=== PATIENT | female | born 1930 | race Caucasian/White ===

== ENCOUNTER 2019-06-02 15:26 | Inpatient (IN) ==
--- NOTE | 2019-06-02 15:43 | DR.EXTPAIN ---
HPI Time seen Time Seen by Provider: 06/02/19 15:43 PCP Primary Care Physician: LINDA HPI Comment HPI Comment: PATIENT IS 89YR OLD FEMALE IN ER WITH LEFT HIP PAIN AFTER FALLING AT HOME. UNABLE TO BEAR WEIGHT ON LEFT HIP. DENIES CHEST PAIN OR DIZZINESS. Complaint/Symptoms Chief Complaint Doctor Comments: FELL AT HOME, LEFT HIP PAIN. Chief Complaint:: PT. TRIPPED AND FELL LANDING ON HER LEFT HIP. PT. C/O LEFT HIP PAIN. EMS STATE PT. WAS UNABLE TO BEAR WEIGHT TO EXTREMITY. Nurses notes reviewed Nurses Notes Review: Yes Source History Provided: Patient and EMS Mode of arrival Mode of Arrival: EMS Timing Onset of Chief Complaint: 06/02/19 Context History of: Arthritis Associated signs and symptoms Associated Signs and Symptoms: Pain and Swelling PMH PMH Past Medical History: Yes Past Medical History: Diabetes, Dyslipidemia and Hypertension Past Surgical History: Yes Surgical History: Other Past Surgical History Comment: CATARACTS, SKIN CANCER REMOVAL Family History History of Family Medical Conditions: Yes Family Medical History: Hypertension Social History Does patient currently use any type of tobacco product: No Have you used tobacco products in the last 12 months: No Type of Tobacco Use: None Does any household member use tobacco: No Alcohol Use: None Do you use any recreational Drugs:: No Lives With: Family Lives Where: Home infectious screening In the last 2 months have you had wt loss of >10#?: NO Have you had fever, night sweats or hemotysis?: No Have you traveled outside the country in the last 6 months?: No Isolation: Standard ROS Review of Systems Constitutional: No Symptoms Reported and See HPI; negative Fever, Weakness and Fatigue Eyes: No Symptoms Reported and See HPI ENTM: No Symptoms Reported and See HPI; negative Nose Discharge and Nose Congestion Respiratoy: No Symptoms Reported and See HPI; negative Moist Cough, Short of Breath and Wheezing Cardiovascular: No Symptoms Reported and See HPI; negative Chest Pain Gastrointestinal/Abdominal: No Symptoms Reported and See HPI Genitourinary: No Symptoms Reported Neurological: No Symptoms Reported Musculoskeletal: No Symptoms Reported Integumentary: No Symptoms Reported Hematologic/Lymphatic: No Symptoms Reported Endocrine: No Symptoms Reported Psychiatric: No Symptoms Reported and See HPI All Other Systems: Reviewed and Negative PE Vital Signs Vitals: Temperature 98.2 F Pulse Rate [Right Brachial] 81 Pulse Rate 86 Respiratory Rate 17 Blood Pressure [Right Arm] 201/87 Blood Pressure 193/86 O2 Sat by Pulse Oximetry 97 General Limitations: No Limitations General Appearance: Alert and In No Apparent Distress Head Head Exam: Normal Inspection Eyes Eye exam: Normal Appearance; negative Scleral Icterus and Conjunctival Injection ENT ENT Exam: Normal Exam, Normal Oropharynx, Normal External Ear Exam and TM's Normal Bilaterally Neck Neck Exam: Normal Inspection and Trachea Midline; negative Tenderness and Lymphadenopathy Chest Chest Inspection: Normal Inspection and Symmetric Chest Wall Rise; negative Tenderness Respiratory Respiratory Exam: Normal Lung Sounds Bilat; negative Accessory Muscle Use, Chest Wall Tenderness and Respiratory Distress Respiratory Exam: Bilateral: Rhonchi and Lower: Rhonchi Cardiovascular Cardiovascular Exam: Regular Rate, Normal Rhythm and Normal Heart Sounds Abdominal Exam Abdominal Exam: Normal Inspection, Normal Bowel Sounds and Soft; negative Tenderness Extremities Extremities Exam: Tenderness, Normal Capillary Refill and Joint Swelling (LEFT HIP SWOLLEN AND TENDERNESS.); negative Full ROM and Calf Tenderness Back Back Exam: Normal Inspection Neurological Neurological Exam: Alert, Oriented X3 and CN II-XII Intact Psychiatric Psychiatric Exam: Normal Affect and Normal Mood Skin Skin Exam: Erythema and Other (BRUISING LEFT HIP.) MDM Differential Diagnosis Differential Diagnosis: Contusion (LT HIP), Fracture (LEFT HIP) and Sprain (LEFT HIP) COURSE Treatment Treatment: SEE ORDERS. MORPHIN 4MG IV AND ZOFRAN 4MG IV. REPEAT MORPHIN 4MG IV. Reevaluation 1st: Improved (STILL HAVING PAIN.) Consultation Consultation Comments: DISCUSSED PATIENT WITH DR. BRENNAN AND WILL ADMIT PATIENT. HARPAL PETER WAS CONSULTED. Education/Counseling Education/Counseling: Patient and Education Educated On: Diagnosis and Needs for Follow Up ROR Labs Reviewed Laboratory Results Reviewed?: Yes Result Diagrams: 06/04/19 05:21 06/04/19 05:21 Laboratory: 06/02/19 17:23 Urine,Catheterized Urine Culture - Final Methicillin Resis Staph Aureus WBC 8.3 X10^3/uL (3.6-10.0) 06/02/19 16:49 RBC 4.10 X10^6/uL (3.5-5.4) 06/02/19 16:49 Hgb 12.6 g/dL (12.0-16.0) 06/02/19 16:49 Hct 37.7 % (36.0-47.0) 06/02/19 16:49 MCV 91.9 fL (80.0-100.0) 06/02/19 16:49 MCH 30.7 pg (27.0-34.0) 06/02/19 16:49 MCHC 33.4 g/dL (33.0-35.0) 06/02/19 16:49 RDW 14.4 % (11.6-16.5) 06/02/19 16:49 Plt Count 301 X10^3/uL (150.0-450.0) 06/02/19 16:49 MPV 7.3 fL (7.4-11.0) L 06/02/19 16:49 Neut % (Auto) 68.1 % (42.0-75.0) 06/02/19 16:49 Lymph % (Auto) 21.0 % (21.0-51.0) 06/02/19 16:49 [place] % (Auto) 8.6 % (0.0-13.0) 06/02/19 16:49 Eos % (Auto) 1.4 % (0.9-2.9) 06/02/19 16:49 Baso % (Auto) 0.9 % (0.2-1.0) 06/02/19 16:49 Neut # (Auto) 5.6 x10^3/uL (2.2-4.8) H 06/02/19 16:49 Lymph # (Auto) 1.7 X10^3/uL (1.3-2.9) 06/02/19 16:49 [place] # (Auto) 0.7 x10^3/uL (0.3-0.8) 06/02/19 16:49 Eos # (Auto) 0.1 x10^3/uL (0.0-0.2) 06/02/19 16:49 Baso # (Auto) 0.1 X10^3/uL (0.0-0.1) 06/02/19 16:49 Absolute Nucleated RBC 0.0 /100WBC 06/02/19 16:49 Sodium 135 mmol/L (136-145) L 06/02/19 16:49 Corrected Sodium 142 mmol/L (136-145) 06/02/19 16:49 Potassium 4.3 mmol/L (3.5-5.1) 06/02/19 16:49 Chloride 99 mmol/L (98-107) 06/02/19 16:49 Carbon Dioxide 31.1 mmol/L (21-32) 06/02/19 16:49 BUN 25 mg/dL (7-18) H 06/02/19 16:49 Creatinine 1.16 mg/dL (0.55-1.02) H 06/02/19 16:49 Est GFR (MDRD) Af Amer 57 (>60) L 06/02/19 16:49 Est GFR (MDRD) Non-Af 47 (>60) L 06/02/19 16:49 Glucose 390 mg/dL (65-99) H 06/02/19 16:49 Calcium 9.1 mg/dL (8.5-10.1) 06/02/19 16:49 Corrected Calcium TNP 06/02/19 16:49 Total Bilirubin 0.20 mg/dL (0.2-1.0) 06/02/19 16:49 AST 12 Units/L (15-37) L 06/02/19 16:49 ALT 21 Units/L (12-78) 06/02/19 16:49 Alkaline Phosphatase 63 Units/L (46-116) 06/02/19 16:49 Total Protein 8.0 g/dL (6.4-8.2) 06/02/19 16:49 Albumin 3.5 g/dL (3.4-5.0) 06/02/19 16:49 Globulin 4.5 g/dL (2.5-4.5) 06/02/19 16:49 Albumin/Globulin Ratio 0.8 Ratio (1.1-2.1) L 06/02/19 16:49 Specimen Type Catherized urine 06/02/19 17:23 Urine Color Yellow (YELLOW) 06/02/19 17:23 Urine Appearance Hazy (CLEAR) 06/02/19 17:23 Urine pH 7.0 (5.0 - 8.0) 06/02/19 17:23 Ur Specific [place] 1.010 (1.000-1.030) 06/02/19 17:23 Urine Protein 2+ (NEGATIVE) 06/02/19 17:23 Urine Glucose (UA) 4+ (NEGATIVE) 06/02/19 17:23 Urine Ketones Negative (NEGATIVE) 06/02/19 17:23 Urine Occult Blood 1+ (NEGATIVE) 06/02/19 17:23 Urine Nitrite Negative (NEGATIVE) 06/02/19 17:23 Urine Bilirubin Negative (NEGATIVE) 06/02/19 17:23 Urine Urobilinogen Normal (NORMAL) 06/02/19 17:23 Ur Leukocyte Esterase 3+ (NEGATIVE) 06/02/19 17:23 Urine RBC 0-2 /HPF (0-3) 06/02/19 17:23 Urine WBC 10-20 /HPF (0-5) A 06/02/19 17:23 Ur Squamous Epith Cells Rare /HPF (NEGATIVE) 06/02/19 17:23 Urine Bacteria 3+ /HPF (NEGATIVE) 06/02/19 17:23 Ur Culture Indicated? Yes/culture set up 06/02/19 17:23 XRAY XRAY Interpreted by: Radiologist and Self XRAY Findings: REPORTS NOTED AND DISCUSSED WITH PATIENT. Opioid Opioid Risk Tool Age (Adolfo box if 16-45): No History of Preadolescent Sexual Abuse: No Total: 0 Total Score Risk Category: Low Risk Copyright: Manan MACHUCA predicting aberrant behaviors Diagnosis Discharge Problem: Hip fracture, left Qualifiers: Encounter type: initial encounter Fracture type: closed Qualified Code(s): S72.002A - Fracture of unspecified part of neck of left femur, initial encounter for closed fracture Instructions Forms: Excuse From Work Patient Portal
[2019-06-02] MEDS ORDERED: ZOFRAN INJ 4 MG VIAL IVP ONE (15:59)
[2019-06-02] MEDS ORDERED: MORPHINE SULFATE INJ 4 MG IVP ONE ×2 (15:59→17:43)
[2019-06-02] MEDS ORDERED: ZOFRAN INJ 4 MG VIAL ONE (16:00)
[2019-06-02] MEDS ORDERED: MORPHINE SULFATE INJ 4 MG ONE ×2 (16:00→17:43)
[2019-06-02 17:01] LABS: BASOPHILS # (AUTO) 0.1 X10^3/uL (0.0-0.1); BASOPHILS % (AUTO) 0.9 % (0.2-1.0); EOSINOPHILS # (AUTO) 0.1 x10^3/uL (0.0-0.2); EOSINOPHILS % (AUTO) 1.4 % (0.9-2.9); HEMATOCRIT 37.7 % (36.0-47.0); HEMOGLOBIN 12.6 g/dL (12.0-16.0); LYMPHOCYTES # (AUTO) 1.7 X10^3/uL (1.3-2.9); MEAN CORPUSCULAR HEMOGLOBIN 30.7 pg (27.0-34.0); MEAN CORPUSCULAR HGB CONC 33.4 g/dL (33.0-35.0); MEAN CORPUSCULAR VOLUME 91.9 fL (80.0-100.0); MEAN PLATELET VOLUME 7.3 fL (7.4-11.0); MONOCYTES # (AUTO) 0.7 x10^3/uL (0.3-0.8); MONOCYTES % (AUTO) 8.6 % (0.0-13.0); NEUTROPHILS # (AUTO) 5.6 x10^3/uL (2.2-4.8); NEUTROPHILS % (AUTO) 68.1 % (42.0-75.0); PLATELET COUNT 301 X10^3/uL (150.0-450.0); RED CELL DISTRIBUTION WIDTH 14.4 % (11.6-16.5); WHITE BLOOD COUNT 8.3 X10^3/uL (3.6-10.0)
[2019-06-02 17:09] LABS: ALANINE AMINOTRANSFERASE 21 Units/L (12-78); ALBUMIN 3.5 g/dL (3.4-5.0); ALKALINE PHOSPHATASE 63 Units/L (46-116); ASPARTATE AMINO TRANSFERASE 12 Units/L (15-37); BLOOD UREA NITROGEN 25 mg/dL (7-18); CALCIUM 9.1 mg/dL (8.5-10.1); CARBON DIOXIDE 31.1 mmol/L (21-32); CHLORIDE 99 mmol/L (98-107); COR NA(FOR HYPERGLY) 142 mmol/L (136-145); CREATININE 1.16 mg/dL (0.55-1.02); SODIUM 135 mmol/L (136-145); eGFR NON BLACK RACES 47 (>60)
[2019-06-02 17:40] LABS: BILIRUBIN,URINE NEGATIVE (NEGATIVE); BLOOD/HEMOGLOBIN,URINE 1+ (NEGATIVE); GLUCOSE, URINE 4+ (NEGATIVE); KETONES,URINE NEGATIVE (NEGATIVE); LEUKOCYTE ESTERASE ,URINE 3+ (NEGATIVE); NITRITES,URINE NEGATIVE (NEGATIVE); PROTEIN,URINE 2+ (NEGATIVE); UROBILINOGEN,URINE NORMAL (NORMAL)
[2019-06-02 17:47] LABS: APPEARANCE,URINE HAZY (CLEAR); COLOR,URINE YELLOW (YELLOW)
[2019-06-02 17:48] LABS: BACTERIA,URINE 3+ /HPF (NEGATIVE); RBC,URINE 0-2 /HPF (0-3); SQUAMOUS EPITHELIAL CELL,UR RARE /HPF (NEGATIVE)
--- NOTE | 2019-06-02 17:48 | RAD ---
HISTORYPRE OP HIP SXSTUDYCHEST, 1 VIEWCOMPARISONNoneFINDINGSThe trachea is midline. Mild cardiomegaly. Thoracic aorta calcifications. Chronic appearing coarsened interstitial markings. No focal consolidation. The bony thorax is intact.IMPRESSIONNo acute cardiopulmonary disease.Electronically signed by: KIMBERLY GARNICA (Jun 02, 2019 17:48:40)
--- NOTE | 2019-06-02 17:56 | RAD ---
HISTORYTrauma, pain PT. TRIPPED AND FELL LANDING ON HER LEFT HIP. PT. C/O LEFT HIP PAIN. EMS STATE PT. WAS UNABLE TO BEAR WEIGHT TO EXTREMITY. HTN, DM, skin CA removalSTUDYHIP, LEFTCOMPARISONJuly 2018FINDINGSA single frontal view of the pelvis demonstrates the pelvic ring to be intact. There is an acute, displaced, and impacted subcapital femoral neck fracture on the left. No dislocation. Mild right hip osteoarthritis.IMPRESSIONAcute left subcapital femoral neck fractureElectronically signed by: KIMBERLY GARNICA (Jun 02, 2019 17:56:00)
[2019-06-02] MEDS ORDERED: MORPHINE SULFATE PCA 30 MG IVP PRN (18:11)
[2019-06-02] MEDS ORDERED: NARCAN INJ IVP PRN (18:11)
[2019-06-02] MEDS ORDERED: NS 1000 ML 1,000 ML ONE (18:53)
[2019-06-02] MEDS: NS 1000 ML 1,000 ML IV SCH (19:07)
[2019-06-02] MEDS: HumuLIN R SUBCUT PRN (21:45)
[2019-06-02 22:02] VITALS: BMI 25.0
[2019-06-03 06:40] LABS: BASOPHILS # (AUTO) 0.1 X10^3/uL (0.0-0.1); BASOPHILS % (AUTO) 0.7 % (0.2-1.0); EOSINOPHILS # (AUTO) 0.1 x10^3/uL (0.0-0.2); EOSINOPHILS % (AUTO) 0.8 % (0.9-2.9); HEMATOCRIT 35.7 % (36.0-47.0); LYMPHOCYTES # (AUTO) 1.7 X10^3/uL (1.3-2.9); LYMPHOCYTES % (AUTO) 19.7 % (21.0-51.0); MEAN CORPUSCULAR HEMOGLOBIN 31.2 pg (27.0-34.0); MEAN CORPUSCULAR HGB CONC 33.7 g/dL (33.0-35.0); MEAN CORPUSCULAR VOLUME 92.5 fL (80.0-100.0); MEAN PLATELET VOLUME 7.1 fL (7.4-11.0); NEUTROPHILS # (AUTO) 5.8 x10^3/uL (2.2-4.8); NEUTROPHILS % (AUTO) 66.8 % (42.0-75.0); PLATELET COUNT 283 X10^3/uL (150.0-450.0); RED BLOOD COUNT 3.86 X10^6/uL (3.5-5.4); RED CELL DISTRIBUTION WIDTH 14.3 % (11.6-16.5); WHITE BLOOD COUNT 8.6 X10^3/uL (3.6-10.0)
[2019-06-03 06:54] LABS: ALANINE AMINOTRANSFERASE 19 Units/L (12-78); ALKALINE PHOSPHATASE 54 Units/L (46-116); ASPARTATE AMINO TRANSFERASE 15 Units/L (15-37); BLOOD UREA NITROGEN 25 mg/dL (7-18); CALCIUM 8.5 mg/dL (8.5-10.1); CARBON DIOXIDE 29.5 mmol/L (21-32); CHLORIDE 101 mmol/L (98-107); COR CA(FOR HYPOALB) 9.3 mg/dL (8.5-10.1); COR NA(FOR HYPERGLY) 137 mmol/L (136-145); CREATININE 1.05 mg/dL (0.55-1.02); SODIUM 135 mmol/L (136-145); TOTAL PROTEIN 7.2 g/dL (6.4-8.2); eGFR NON BLACK RACES 53 (>60)
[2019-06-03] MEDS ORDERED: NEO-SYNEPHRINE INJ ONE (08:30)
[2019-06-03] MEDS ORDERED: EPHEDRINE SULFATE INJ ONE (08:30)
[2019-06-03] MEDS ORDERED: VERSED ONE (08:30)
[2019-06-03] MEDS ORDERED: KETALAR ONE (09:04)
[2019-06-03] MEDS: ROCEPHIN VIAL 1 GRAM 1 G in NS 100 ML IV + SPIKE MINIBAG* 100 ML IV SCH (09:29)
--- NOTE | 2019-06-03 09:37 | DR.H&P ---
H&P - History & Physical for Day of: H&P Date: 06/03/19 - Chief Complaint Chief Complaint: LEFT HIP PAIN - History of Present Illness History of Present Illness: IS A 89 YEAR OLD PATIENT OF OURS WHO PRESENTED TO THE ER WITH COMPLAINTS OF LEFT HIP PAIN AFTER FALLING AT HOME. SHE WAS UNABLE TO BEAR WEIGHT TO THE LEFT EXTREMITY. PATIENT LIVES AT HOME WITH HER HANDICAPPED SON. ON ARRIVAL TO THE ER, VITALS ERE 98.2-86-17-93%-193/86. LABS WERE OBTAINED. ABNORMAL LAB VALUES INCLUDE THE FOLLOWING: SODIUM 135, BUN 25, CREATININE 1.16, GLUCOSE 390, AST 12. URINALYSIS REVEALED: WBC 10-20, RBC -2, LEUKOCYTES 3+, BACTERIA 2+. URINE CULTURE WAS SET UP. LEFT HIP XRAY REVEALED: ACUTE LEFT SUBCAPITAL FEMORAL NECK FRACTURE. CHEST XRAY REVEALED: NO ACUTE CARDIOPULMONARY DISEASE. EKG REVEALED: SINUS RHYTHM WITH HR 86. WAS CONSULTED. HE VISITED WITH PATIENT THIS MORNING AND PLANNED FOR HIP REPLACEMENT THIS AFTERNOON. WE DISCUSSED PLAN OF CARE WITH PATIENT AND SHE IS IN AGREEMENT. TIME SPENT WITH PATIENT AND CONSULTING PHYSICIAN WAS GREATER THAN 16 MINUTES. AN ECHO WAS OBTAINED FOR SURGICAL CLEARANCE. SHE IS MEDICALLY STABLE AND CLEAR FOR SURGERY. SHE WAS STARTED ON NORMAL SALINE AT KVO, MORPHINE HEAD AND NECK SURGEON, HUMULIN R SLIDING SCALE, AND ROCEPHIN 1G IV DAILY FOR UTI. OTHERWISE, WE WILL FOLLOW UP WITH AM LABS AND CONTINUE TO MONITOR. - Past Medical History Past Medical History: Hypertension, Dyslipidemia, Diabetes - Past Surgical History Surgical History: Other - Family History Family Medical History: Hypertension - Social History Does patient currently use any type of tobacco product: No Have you used tobacco products in the last 12 months: No Type of Tobacco Use: None Does any household member use tobacco: No Alcohol Use: None Drug Use: None - Medications Home Medications: iodine Allergy (Verified 06/02/19 15:34) - Review of Systems Constitutional: Weakness Eyes: No Symptoms Reported ENT: No Symptoms Reported Respiratory: No Symptoms Reported Cardiovascular: No Symptoms Reported Gastrointestinal: No Symptoms Reported Genitourinary: No Symptoms Reported Musculoskeletal: See HPI, Other (LEFT HIP PAIN ) Skin: No Symptoms Reported Neurological: Weakness - Physical Exam Vital Signs: Temperature 98.8 F Pulse Rate [Right Brachial] 86 Pulse Rate 86 Respiratory Rate 18 Blood Pressure [Right Arm] 107/53 Blood Pressure 193/86 O2 Sat by Pulse Oximetry 93 Oriented: Normal Eyes: Normal Ear: Normal Nose: Normal Throat: Normal Respiratory: Diminished Throughout Cardiovascular: Normal : Normal Auscultation: Bowel Sounds: Normal Palpation: Normal Tenderness: Normal Skin: Normal Musculoskeletal: Left, Hip, Swelling, Deformity Psychiatric: Normal Mood Description: Calm Affect: Normal Speech Pattern: Clear - Assessment/Plan (1) Hip fracture, left Qualifiers: Encounter type: initial encounter Fracture type: closed Qualified Code(s): S72.002A - Fracture of unspecified part of neck of left femur, initial encounter for closed fracture Status: Acute Plan: SURGICAL CONSULT, MORPHINE HEAD AND NECK SURGEON, CONTINUE TO MONITOR (2) Acute hip pain Qualifiers: Laterality: left Qualified Code(s): M25.552 - Pain in left hip Status: Acute (3) Hypertension Qualifiers: Hypertension type: essential hypertension Qualified Code(s): I10 - Essential (primary) hypertension Status: Acute (4) Urinary tract infection Qualifiers: Urinary tract infection type: site unspecified Hematuria presence: without hematuria Qualified Code(s): N39.0 - Urinary tract infection, site not specified Status: Acute Plan: ROCPEHIN 1G IV DAILY, CONTINUE TO MONITOR - Allergies Allergies/Adverse Reactions: Allergies Allergy/AdvReac Type Severity Reaction Status Date / Time iodine Allergy Verified 06/02/19 15:34
[2019-06-03] MEDS ORDERED: BACTROBAN TOPICAL OINT ONE (11:13)
[2019-06-03] MEDS ORDERED: MARCAINE 0.25% WITH EPI IJ ONE (11:13)
--- NOTE | 2019-06-03 11:58 | VAS ---
HISTORYORTHO CLEARANCE, dizzinessSTUDYCarotid Doppler ultrasoundCOMPARISONNo priorsTECHNIQUEMultiple hoang scale and color flow Doppler images of the right and left carotid arterial system were obtained. The vertebral arterial system was evaluated as well.FINDINGSNormal color flow Doppler is seen throughout the right and left carotid arterial system. Peak systolic arterial velocity in right ICA 72.5 centimeters/second with an ICA/CCA ratio 0.75. Peak systolic arterial velocity in the left ICA is 75.9 centimeters/second with an ICA/CCA ratio 0.7. no hemodynamically significant stenosis is seen based on velocity criteria. The right and left vertebral arteries demonstrate antegrade flow.IMPRESSIONNo hemodynamically significant stenosisElectronically signed by: ESTELA MENDOZA (Jun 03, 2019 11:56:33)
[2019-06-03] MEDS ORDERED: FENTANYL INJ 100 mcg ONE (12:08)
[2019-06-03] MEDS ORDERED: ANCEF 1 GRAM IV PREMIX* 1 G/50 ML BAG IV ONE (12:59)
[2019-06-03] MEDS ORDERED: LR 1000 ML IV 1,000 ML IV ONE (13:32)
[2019-06-03] MEDS ORDERED: MORPHINE SULFATE INJ 2 MG INJ ONE (17:17)
[2019-06-03] MEDS ORDERED: MORPHINE SULFATE INJ 2 MG INJ IVP PRN (17:37)
[2019-06-03] MEDS ORDERED: NORCO 5/325 MG TAB PO PRN (17:40)
[2019-06-03] MEDS: HumuLIN R SUBCUT PRN ×2 (17:41→22:15)
--- NOTE | 2019-06-03 18:11 | RAD ---
HISTORYPOST OP LEFT HIP REPLACEMENT HTN, DM, CATARACTS, ORTHOSTUDYPELVISCOMPARISONNoneFINDINGSThere is a metallic prosthesis in the left hip with the acetabu lar and femoral portions of the prosthesis in good position. There is mild joint space narrowing in t he right hip. No fracture or dislocation is seen. There are skin clips superior laterally on the left . There is mild subcutaneous swelling and air scattered around the left hip. The pelvis is intact.IMP RESSIONStatus post total left hip replacement with postop changes as above.Electronically signed by: ALEX HULL (Jun 03, 2019 18:10:30)
[2019-06-03] MEDS: SNACK - Diabetic Appropriate PO SCH (20:00)
[2019-06-03] MEDS: NS 1000 ML 1,000 ML IV SCH (20:44)
[2019-06-04 06:26] LABS: BASOPHILS % (AUTO) 0.3 % (0.2-1.0); EOSINOPHILS % (AUTO) 0.3 % (0.9-2.9); HEMATOCRIT 31.5 % (36.0-47.0); HEMOGLOBIN 10.7 g/dL (12.0-16.0); LYMPHOCYTES # (AUTO) 1.1 X10^3/uL (1.3-2.9); LYMPHOCYTES % (AUTO) 9.2 % (21.0-51.0); MEAN CORPUSCULAR HEMOGLOBIN 31.1 pg (27.0-34.0); MEAN CORPUSCULAR HGB CONC 33.8 g/dL (33.0-35.0); MEAN PLATELET VOLUME 7.4 fL (7.4-11.0); MONOCYTES # (AUTO) 1.5 x10^3/uL (0.3-0.8); MONOCYTES % (AUTO) 12.3 % (0.0-13.0); NEUTROPHILS # (AUTO) 9.5 x10^3/uL (2.2-4.8); NEUTROPHILS % (AUTO) 77.9 % (42.0-75.0); PLATELET COUNT 246 X10^3/uL (150.0-450.0); RED BLOOD COUNT 3.43 X10^6/uL (3.5-5.4); RED CELL DISTRIBUTION WIDTH 14.1 % (11.6-16.5); WHITE BLOOD COUNT 12.3 X10^3/uL (3.6-10.0)
[2019-06-04 06:49] LABS: ALANINE AMINOTRANSFERASE 16 Units/L (12-78); ALBUMIN 2.5 g/dL (3.4-5.0); ALKALINE PHOSPHATASE 56 Units/L (46-116); ASPARTATE AMINO TRANSFERASE 18 Units/L (15-37); BLOOD UREA NITROGEN 16 mg/dL (7-18); CARBON DIOXIDE 25.4 mmol/L (21-32); CHLORIDE 103 mmol/L (98-107); COR CA(FOR HYPOALB) 9.2 mg/dL (8.5-10.1); COR NA(FOR HYPERGLY) 138 mmol/L (136-145); CREATININE 0.79 mg/dL (0.55-1.02); SODIUM 137 mmol/L (136-145); TOTAL PROTEIN 6.5 g/dL (6.4-8.2); eGFR NON BLACK RACES > 60 (>60)
[2019-06-04] MEDS: NS 1000 ML 1,000 ML IV SCH ×2 (08:39→20:36)
[2019-06-04] MEDS: ROCEPHIN VIAL 1 GRAM 1 G in NS 100 ML IV + SPIKE MINIBAG* 100 ML IV SCH (08:40)
[2019-06-04] MEDS: LOVENOX INJ 40 MG SYR SC SCH (08:42)
[2019-06-04] MEDS ORDERED: ULTRAM PO PRN (10:52)
[2019-06-04] MEDS: JANUVIA PO SCH (12:00)
[2019-06-04] MEDS: GLUCOTROL PO SCH ×2 (12:00→20:35)
[2019-06-04] MEDS: LEVAQUIN PREMIX IV 500 MG 500 MG/100 ML BAG IV SCH (14:15)
[2019-06-04] MEDS: NEURONTIN CAP 300 MG PO SCH ×2 (14:30→21:56)
[2019-06-04] MEDS: HumuLIN R SUBCUT PRN ×2 (17:00→21:56)
[2019-06-04] MEDS ORDERED: SNACK - Diabetic Appropriate PO SCH (20:00)
--- NOTE | 2019-06-04 21:16 | PCM.PROG ---
Progress Note - Progress Note for Day of Date of Exam: 06/04/19 - Subjective Subjective: IS DAY 1 STATUS POST SURGICAL REPAIR DUE TO A LEFT SIDED DISPLACED FEMORAL NECK FRACTURE. TODAY, SHE IS ALERT AND ORIENTED, LYING IN BED ON MORNING ROUNDS. SHE REPORTS RIGHT HIP PAIN THIS MORNING. ON EXAMINATION, HEART IS REGULAR IN RATE AND RHYTHM. BILATERAL LUNGS ARE NOTED WITH DIMINISHED LUNG SOUNDS THROUGHOUT. ABDOMEN IS ROUND, SOFT, AND NOTED WITH SUPRAPUBIC TENDERNESS. LEFT HIP IS NOTED WITH A SURGICAL DRESSING. ABDUCTION PILLOW IN PLACE. HER VITALS THIS MORNING ARE: 98.0-105-20-96%-159/70. LABS WERE OBTAINED. ABNORMAL LAB VALUES INCLUDE THE FOLLOWING: WBC 12.3, RBC 3.43, HGB 10.7, HCT 31.5, GLUCOSE 162, CALCIUM 162, CALCIUM 8.0, ALBUMIN 2.5. URINE CULTURE REVEALED GROWTH OF MRSA. SHE IS CURRENTLY RECEIVING NORMAL SALINE AT KVO, LEVAQUIN 500MG IV DAILY, MORPHINE -4MG IV Q4H PRN, HUMULIN R SLIDING SCALE, AND LOVENOX 40MG SC DAILY. WE WILL RESUME HER HOME MEDICATIONS TODAY. PHYSICAL THERAPY WILL WORK WITH PATIENT TODAY. OTHERWISE, WE WILL FOLLOW UP WITH AM LABS AND CONTINUE TO MONITOR. - Past Medical Family Social History Past Med/Fam/Surg Hx: No changes since H&P Allergies: Allergies iodine Allergy (Verified 06/02/19 15:34) - Review of Systems ROS: No change since H&P - Vital Signs and I&O's Vital Signs: Temperature 98.4 F Pulse Rate [Right Brachial] 102 Pulse Rate 107 Respiratory Rate 20 Blood Pressure [Right Arm] 150/66 Blood Pressure 177/59 O2 Sat by Pulse Oximetry 97 Intake and Output: Intake & Output 06/02/19 06/03/19 06/04/19 06/05/19 11:59 11:59 11:59 11:59 Intake Total 950 / 950 1630 / 1630 880 / 880 Output Total 2550 / 2550 1999 Balance -1600 / -1600 -370 / -370 880 / 880 - Physical Exam Oriented: Normal Eyes: Normal Ear: Normal Nose: Normal Throat: Normal Respiratory: Generalized, Diminished Cardiovascular: Normal : Normal Auscultation: Bowel Sounds: Normal Palpation: Normal Tenderness: Normal Skin: Wound Musculoskeletal: Left, Hip, Swelling, Deformity Psychiatric: Normal Mood Description: Calm Affect: Normal Speech Pattern: Clear, Appropriate - Laboratory and Diagnostics Result Diagrams: 06/04/19 05:21 06/04/19 05:21 Labs: 06/02/19 17:23 Urine,Catheterized Urine Culture - Final Methicillin Resis Staph Aureus Laboratory WBC 12.3 X10^3/uL (3.6-10.0) H 06/04/19 05:21 RBC 3.43 X10^6/uL (3.5-5.4) L 06/04/19 05:21 Hgb 10.7 g/dL (12.0-16.0) L 06/04/19 05:21 Hct 31.5 % (36.0-47.0) L 06/04/19 05:21 MCV 92.0 fL (80.0-100.0) 06/04/19 05:21 MCH 31.1 pg (27.0-34.0) 06/04/19 05:21 MCHC 33.8 g/dL (33.0-35.0) 06/04/19 05:21 RDW 14.1 % (11.6-16.5) 06/04/19 05:21 Plt Count 246 X10^3/uL (150.0-450.0) 06/04/19 05:21 MPV 7.4 fL (7.4-11.0) 06/04/19 05:21 Neut % (Auto) 77.9 % (42.0-75.0) H 06/04/19 05:21 Lymph % (Auto) 9.2 % (21.0-51.0) L 06/04/19 05:21 [place] % (Auto) 12.3 % (0.0-13.0) 06/04/19 05:21 Eos % (Auto) 0.3 % (0.9-2.9) L 06/04/19 05:21 Baso % (Auto) 0.3 % (0.2-1.0) 06/04/19 05:21 Neut # (Auto) 9.5 x10^3/uL (2.2-4.8) H 06/04/19 05:21 Lymph # (Auto) 1.1 X10^3/uL (1.3-2.9) L 06/04/19 05:21 [place] # (Auto) 1.5 x10^3/uL (0.3-0.8) H 06/04/19 05:21 Eos # (Auto) 0.0 x10^3/uL (0.0-0.2) 06/04/19 05:21 Baso # (Auto) 0.0 X10^3/uL (0.0-0.1) 06/04/19 05:21 Absolute Nucleated RBC 0.0 /100WBC 06/04/19 05:21 PT 13.3 SECONDS (11.8-14.3) 06/03/19 06:19 INR Target Range - 06/03/19 06:19 INR 1.05 (0.8-1.3) 06/03/19 06:19 APTT 26.5 SECONDS (22.9-36.5) 06/03/19 06:19 PTT Comment - 06/03/19 06:19 Sodium 137 mmol/L (136-145) 06/04/19 05:21 Corrected Sodium 138 mmol/L (136-145) 06/04/19 05:21 Potassium 3.5 mmol/L (3.5-5.1) 06/04/19 05:21 Chloride 103 mmol/L (98-107) 06/04/19 05:21 Carbon Dioxide 25.4 mmol/L (21-32) 06/04/19 05:21 BUN 16 mg/dL (7-18) 06/04/19 05:21 Creatinine 0.79 mg/dL (0.55-1.02) 06/04/19 05:21 Est GFR (MDRD) Af Amer > 60 (>60) 06/04/19 05:21 Est GFR (MDRD) Non-Af > 60 (>60) 06/04/19 05:21 Glucose 162 mg/dL (65-99) H 06/04/19 05:21 POC Glucose (mg/dL) 254 mg/dL (65-99) H 06/04/19 20:02 Calcium 8.0 mg/dL (8.5-10.1) L 06/04/19 05:21 Corrected Calcium 9.2 mg/dL (8.5-10.1) 06/04/19 05:21 Total Bilirubin 0.30 mg/dL (0.2-1.0) 06/04/19 05:21 AST 18 Units/L (15-37) 06/04/19 05:21 ALT 16 Units/L (12-78) 06/04/19 05:21 Alkaline Phosphatase 56 Units/L (46-116) 06/04/19 05:21 Total Protein 6.5 g/dL (6.4-8.2) 06/04/19 05:21 Albumin 2.5 g/dL (3.4-5.0) L 06/04/19 05:21 Globulin 4.0 g/dL (2.5-4.5) 06/04/19 05:21 Albumin/Globulin Ratio 0.6 Ratio (1.1-2.1) L 06/04/19 05:21 Specimen Type Catherized urine 06/02/19 17:23 Urine Color Yellow (YELLOW) 06/02/19 17:23 Urine Appearance Hazy (CLEAR) 06/02/19 17:23 Urine pH 7.0 (5.0 - 8.0) 06/02/19 17:23 Ur Specific [place] 1.010 (1.000-1.030) 06/02/19 17:23 Urine Protein 2+ (NEGATIVE) 06/02/19 17:23 Urine Glucose (UA) 4+ (NEGATIVE) 06/02/19 17: Urine Ketones Negative (NEGATIVE) 06/02/19 17:23 Urine Occult Blood 1+ (NEGATIVE) 06/02/19 17:23 Urine Nitrite Negative (NEGATIVE) 06/02/19 17: Urine Bilirubin Negative (NEGATIVE) 06/02/19 17:23 Urine Urobilinogen Normal (NORMAL) 06/02/19 17:23 Ur Leukocyte Esterase 3+ (NEGATIVE) 06/02/19 17:23 Urine RBC 0-2 /HPF (0-3) 06/02/19 17:23 Urine WBC 10-20 /HPF (0-5) A 06/02/19 17:23 Ur Squamous Epith Cells Rare /HPF (NEGATIVE) 06/02/19 17:23 Urine Bacteria 3+ /HPF (NEGATIVE) 06/02/19 17:23 Ur Culture Indicated? Yes/culture set up 06/02/19 17:23 Tissue Pathology To follow 06/03/19 14:04 Blood Type A POSITIVE 02/09/20 18:29 Antibody Screen Negative 06/02/19 18:29 - Plan (1) Hip fracture, left Status: Acute Qualifiers: Encounter type: initial encounter Fracture type: closed Qualified Code(s): S72.002A - Fracture of unspecified part of neck of left femur, initial encounter for closed fracture Plan: STATUS POST REPAIR OF FEMORAL NECK FX, PAIN MANAGEMENT, PHYSICAL THERAPY, CONTINUE TO MONITOR (2) Acute hip pain Status: Acute Qualifiers: Laterality: left Qualified Code(s): M25.552 - Pain in left hip (3) Hypertension Status: Acute Qualifiers: Hypertension type: essential hypertension Qualified Code(s): I10 - Essential (primary) hypertension (4) Urinary tract infection Status: Acute Qualifiers: Urinary tract infection type: site unspecified Hematuria presence: without hematuria Qualified Code(s): N39.0 - Urinary tract infection, site not specified Plan: ROCEPHIN 1G IV DAILY, CONTINUE TO MONITOR
[2019-06-04] MEDS: SNACK - Diabetic Appropriate PO SCH (21:56)
[2019-06-05] MEDS: NEURONTIN CAP 300 MG PO SCH ×3 (05:45→21:04)
[2019-06-05 06:10] LABS: BASOPHILS % (AUTO) 0.3 % (0.2-1.0); EOSINOPHILS # (AUTO) 0.1 x10^3/uL (0.0-0.2); HEMATOCRIT 28.8 % (36.0-47.0); HEMOGLOBIN 9.7 g/dL (12.0-16.0); LYMPHOCYTES # (AUTO) 2.1 X10^3/uL (1.3-2.9); LYMPHOCYTES % (AUTO) 15.5 % (21.0-51.0); MEAN CORPUSCULAR HEMOGLOBIN 30.6 pg (27.0-34.0); MEAN CORPUSCULAR HGB CONC 33.9 g/dL (33.0-35.0); MEAN CORPUSCULAR VOLUME 90.2 fL (80.0-100.0); MEAN PLATELET VOLUME 7.3 fL (7.4-11.0); MONOCYTES # (AUTO) 1.8 x10^3/uL (0.3-0.8); MONOCYTES % (AUTO) 13.1 % (0.0-13.0); NEUTROPHILS # (AUTO) 9.5 x10^3/uL (2.2-4.8); NEUTROPHILS % (AUTO) 70.1 % (42.0-75.0); PLATELET COUNT 237 X10^3/uL (150.0-450.0); RED BLOOD COUNT 3.19 X10^6/uL (3.5-5.4); RED CELL DISTRIBUTION WIDTH 14.2 % (11.6-16.5); WHITE BLOOD COUNT 13.6 X10^3/uL (3.6-10.0)
[2019-06-05 06:27] LABS: ALANINE AMINOTRANSFERASE 13 Units/L (12-78); ALBUMIN 2.1 g/dL (3.4-5.0); ALKALINE PHOSPHATASE 57 Units/L (46-116); ASPARTATE AMINO TRANSFERASE 16 Units/L (15-37); BLOOD UREA NITROGEN 16 mg/dL (7-18); CALCIUM 8.3 mg/dL (8.5-10.1); CARBON DIOXIDE 24.7 mmol/L (21-32); CHLORIDE 100 mmol/L (98-107); COR CA(FOR HYPOALB) 9.8 mg/dL (8.5-10.1); COR NA(FOR HYPERGLY) 134 mmol/L (136-145); CREATININE 0.86 mg/dL (0.55-1.02); SODIUM 132 mmol/L (136-145); TOTAL PROTEIN 6.2 g/dL (6.4-8.2); eGFR NON BLACK RACES > 60 (>60)
[2019-06-05] MEDS: LOVENOX INJ 40 MG SYR SC SCH (08:23)
[2019-06-05] MEDS: JANUVIA PO SCH (08:24)
[2019-06-05] MEDS: LEVAQUIN PREMIX IV 500 MG 500 MG/100 ML BAG IV SCH (08:24)
[2019-06-05] MEDS: GLUCOTROL PO SCH ×2 (08:24→20:42)
[2019-06-05] MEDS: HumuLIN R SUBCUT PRN ×3 (11:37→20:51)
[2019-06-05] MEDS ORDERED: POTASSIUM CHL 40 MEQ/NS 0.45% 500 ML IV PRN (18:50)
[2019-06-05] MEDS ORDERED: K-RIDER 10 MEQ/NS 100 ML 10 MEQ/100 ML BAG IV PRN (18:50)
[2019-06-05] MEDS ORDERED: MAGNESIUM SULFATE 1 GRAM/100 mL PREMIX 1 GM/100 ML BAG IV PRN (18:50)
[2019-06-05] MEDS ORDERED: POTASSIUM CHL 60 MEQ/NS 0.45% 500 ML IV PRN (18:50)
[2019-06-05] MEDS ORDERED: K-DUR TAB 20 MEQ PO PRN (18:50)
[2019-06-05] MEDS ORDERED: POTASSIUM CHLORIDE LIQ 20 MEQ UDC PO PRN (18:50)
[2019-06-05] MEDS ORDERED: MICRO K EXTEN CAP 10 MEQ PO PRN (18:50)
[2019-06-05] MEDS ORDERED: KLOR-CON PO PRN (18:50)
[2019-06-05] MEDS: SNACK - Diabetic Appropriate PO SCH (20:41)
[2019-06-05] MEDS: NS 1000 ML 1,000 ML IV SCH (20:41)
--- NOTE | 2019-06-05 21:20 | PCM.PROG ---
Progress Note - Progress Note for Day of Date of Exam: 06/05/19 - Subjective Subjective: IS DAY 2 STATUS POST SURGICAL REPAIR DUE TO A LEFT SIDED DISPLACED FEMORAL NECK FRACTURE. TODAY, SHE IS ALERT AND ORIENTED, LYING IN BED ON MORNING ROUNDS. SHE REPORTS RIGHT HIP PAIN THIS MORNING. ON EXAMINATION, HEART IS REGULAR IN RATE AND RHYTHM. BILATERAL LUNGS ARE NOTED WITH DIMINISHED LUNG SOUNDS THROUGHOUT. ABDOMEN IS ROUND, SOFT, AND NOTED WITH SUPRAPUBIC TENDERNESS. LEFT HIP IS NOTED WITH A SURGICAL DRESSING. ABDUCTION PILLOW IN PLACE. HER VITALS THIS MORNING ARE: 99.2-94-20-97%-143/63. LABS WERE OBTAINED. ABNORMAL LAB VALUES INCLUDE THE FOLLOWING: WBC 13.6, RBC 3.19, HGB 9.7, HCT 28.8, SODIUM 132, POTASSIUM 3.2, GLUCOSE 170, CALCIUM 8.3, TOTAL PROTEIN 6.2, ALBUMIN 2.1. URINE CULTURE REVEALED GROWTH OF MRSA. SHE IS CURRENTLY RECEIVING NORMAL SALINE AT KVO, LEVAQUIN 500MG IV DAILY, MORPHINE 2-4MG IV Q4H PRN, HUMULIN R SLIDING SCALE, AND LOVENOX 40MG SC DAILY. WE WILL RESUME HER HOME MEDICATIONS TODAY. PHYSICAL THERAPY WILL CONTINUE TO WORK WITH PATIENT TODAY. O THERWISE, WE WILL FOLLOW UP WITH AM LABS AND CONTINUE TO MONITOR. - Past Medical Family Social History Past Med/Fam/Surg Hx: No changes since H&P Allergies: Allergies iodine Allergy (Verified 06/02/19 15:34) - Review of Systems ROS: No change since H&P - Vital Signs and I&O's Vital Signs: Temperature 98.0 F Pulse Rate [Right Brachial] 96 Pulse Rate 107 Respiratory Rate 18 Blood Pressure [Right Arm] 137/63 Blood Pressure 177/59 O2 Sat by Pulse Oximetry 97 Intake and Output: Intake & Output 06/03/19 06/04/19 06/05/19 06/06/19 11:59 11:59 11:59 11:59 Intake Total 950 / 950 1630 / 1630 1580 / 1580 1080 / 1080 Output Total 2550 / 2550 1999 Balance -1600 / -1600 -370 / -370 1580 / 1580 1080 / 1080 - Physical Exam Oriented: Normal Eyes: Normal Ear: Normal Nose: Normal Throat: Normal Respiratory: Generalized, Diminished Cardiovascular: Normal : Normal Auscultation: Bowel Sounds: Normal Palpation: Normal Tenderness: Normal Skin: Wound Musculoskeletal: Left, Hip, Swelling, Deformity Psychiatric: Normal Mood Description: Calm Affect: Normal Speech Pattern: Clear, Appropriate - Laboratory and Diagnostics Result Diagrams: 06/05/19 05:29 06/05/19 16:25 Labs: 06/02/19 17:23 Urine,Catheterized Urine Culture - Final Methicillin Resis Staph Aureus Laboratory WBC 13.6 X10^3/uL (3.6-10.0) H 06/05/19 05:29 RBC 3.19 X10^6/uL (3.5-5.4) L 06/05/19 05:29 Hgb 9.7 g/dL (12.0-16.0) L 06/05/19 05:29 Hct 28.8 % (36.0-47.0) L 06/05/19 05:29 MCV 90.2 fL (80.0-100.0) 06/05/19 05:29 MCH 30.6 pg (27.0-34.0) 06/05/19 05:29 MCHC 33.9 g/dL (33.0-35.0) 06/05/19 05:29 RDW 14.2 % (11.6-16.5) 06/05/19 05:29 Plt Count 237 X10^3/uL (150.0-450.0) 06/05/19 05:29 MPV 7.3 fL (7.4-11.0) L 06/05/19 05:29 Neut % (Auto) 70.1 % (42.0-75.0) 06/05/19 05:29 Lymph % (Auto) 15.5 % (21.0-51.0) L 06/05/19 05:29 [place] % (Auto) 13.1 % (0.0-13.0) H 06/05/19 05:29 Eos % (Auto) 1.0 % (0.9-2.9) 06/05/19 05:29 Baso % (Auto) 0.3 % (0.2-1.0) 06/05/19 05:29 Neut # (Auto) 9.5 x10^3/uL (2.2-4.8) H 06/05/19 05:29 Lymph # (Auto) 2.1 X10^3/uL (1.3-2.9) 06/05/19 05:29 [place] # (Auto) 1.8 x10^3/uL (0.3-0.8) H 06/05/19 05:29 Eos # (Auto) 0.1 x10^3/uL (0.0-0.2) 06/05/19 05:29 Baso # (Auto) 0.0 X10^3/uL (0.0-0.1) 06/05/19 05:29 Absolute Nucleated RBC 0.0 /100WBC 06/05/19 05:29 PT 13.3 SECONDS (11.8-14.3) 06/03/19 06:19 INR Target Range - 06/03/19 06:19 INR 1.05 (0.8-1.3) 06/03/19 06:19 APTT 26.5 SECONDS (22.9-36.5) 06/03/19 06:19 PTT Comment - 06/03/19 06:19 Sodium 132 mmol/L (136-145) L 06/05/19 05:29 Corrected Sodium 134 mmol/L (136-145) L 06/05/19 05:29 Potassium 3.2 mmol/L (3.5-5.1) L 06/05/19 05:29 Chloride 100 mmol/L (98-107) 06/05/19 05:29 Carbon Dioxide 24.7 mmol/L (21-32) 06/05/19 05:29 BUN 16 mg/dL (7-18) 06/05/19 05:29 Creatinine 0.86 mg/dL (0.55-1.02) 06/05/19 05:29 Est GFR (MDRD) Af Amer > 60 (>60) 06/05/19 05:29 Est GFR (MDRD) Non-Af > 60 (>60) 06/05/19 05:29 Glucose 400 mg/dL (65-99) H 06/05/19 16:25 POC Glucose (mg/dL) 319 mg/dL (65-99) H 06/05/19 20:28 Calcium 8.3 mg/dL (8.5-10.1) L 06/05/19 05:29 Corrected Calcium 9.8 mg/dL (8.5-10.1) 06/05/19 05:29 Magnesium 1.9 mg/dL (1.7-2.9) 06/05/19 05:29 Total Bilirubin 0.30 mg/dL (0.2-1.0) 06/05/19 05:29 AST 16 Units/L (15-37) 06/05/19 05:29 ALT 13 Units/L (12-78) 06/05/19 05:29 Alkaline Phosphatase 57 Units/L (46-116) 06/05/19 05:29 Total Protein 6.2 g/dL (6.4-8.2) L 06/05/19 05:29 Albumin 2.1 g/dL (3.4-5.0) L 06/05/19 05:29 Globulin 4.1 g/dL (2.5-4.5) 06/05/19 05:29 Albumin/Globulin Ratio 0.5 Ratio (1.1-2.1) L 06/05/19 05:29 Specimen Type Catherized urine 06/02/19 17:23 Urine Color Yellow (YELLOW) 06/02/19 17:23 Urine Appearance Hazy (CLEAR) 06/02/19 17:23 Urine pH 7.0 (5.0 - 8.0) 06/02/19 17:23 Ur Specific [place] 1.010 (1.000-1.030) 06/02/19 17:23 Urine Protein 2+ (NEGATIVE) 06/02/19 17:23 Urine Glucose (UA) 4+ (NEGATIVE) 06/02/19 17: Urine Ketones Negative (NEGATIVE) 06/02/19 17: Urine Occult Blood 1+ (NEGATIVE) 06/02/19 17: Urine Nitrite Negative (NEGATIVE) 06/02/19 17:23 Urine Bilirubin Negative (NEGATIVE) 06/02/19 17:23 Urine Urobilinogen Normal (NORMAL) 06/02/19 17:23 Ur Leukocyte Esterase 3+ (NEGATIVE) 06/02/19 17:23 Urine RBC 0-2 /HPF (0-3) 06/02/19 17:23 Urine WBC 10-20 /HPF (0-5) A 06/02/19 17:23 Ur Squamous Epith Cells Rare /HPF (NEGATIVE) 06/02/19 17:23 Urine Bacteria 3+ /HPF (NEGATIVE) 06/02/19 17:23 Ur Culture Indicated? Yes/culture set up 06/02/19 17:23 Tissue Pathology To follow 06/03/19 14:04 Blood Type A POSITIVE 06/02/19 18:29 Antibody Screen Negative 06/02/19 18:29 - Plan (1) Hip fracture, left Status: Acute Qualifiers: Encounter type: initial encounter Fracture type: closed Qualified Code(s): S72.002A - Fracture of unspecified part of neck of left femur, initial encounter for closed fracture Plan: STATUS POST REPAIR OF FEMORAL NECK FX, PAIN MANAGEMENT, PHYSICAL THERAPY, CONTINUE TO MONITOR (2) Acute hip pain Status: Acute Qualifiers: Laterality: left Qualified Code(s): M25.552 - Pain in left hip (3) Hypertension Status: Acute Qualifiers: Hypertension type: essential hypertension Qualified Code(s): I10 - Essential (primary) hypertension (4) Urinary tract infection Status: Acute Qualifiers: Urinary tract infection type: site unspecified Hematuria presence: without hematuria Qualified Code(s): N39.0 - Urinary tract infection, site not specified Plan: ROCEPHIN 1G IV DAILY, CONTINUE TO MONITOR
[2019-06-06] MEDS: HumuLIN R SUBCUT PRN ×4 (05:47→20:44)
[2019-06-06] MEDS: NEURONTIN CAP 300 MG PO SCH ×3 (05:47→21:00)
[2019-06-06] MEDS: NS 1000 ML 1,000 ML IV SCH ×2 (05:51→20:40)
[2019-06-06 06:32] LABS: BASOPHILS # (AUTO) 0.1 X10^3/uL (0.0-0.1); BASOPHILS % (AUTO) 0.5 % (0.2-1.0); EOSINOPHILS # (AUTO) 0.2 x10^3/uL (0.0-0.2); EOSINOPHILS % (AUTO) 1.7 % (0.9-2.9); HEMATOCRIT 28.5 % (36.0-47.0); HEMOGLOBIN 9.7 g/dL (12.0-16.0); LYMPHOCYTES % (AUTO) 17.4 % (21.0-51.0); MEAN CORPUSCULAR HEMOGLOBIN 30.9 pg (27.0-34.0); MEAN CORPUSCULAR VOLUME 90.7 fL (80.0-100.0); MEAN PLATELET VOLUME 7.5 fL (7.4-11.0); MONOCYTES # (AUTO) 1.3 x10^3/uL (0.3-0.8); MONOCYTES % (AUTO) 10.7 % (0.0-13.0); NEUTROPHILS # (AUTO) 8.2 x10^3/uL (2.2-4.8); NEUTROPHILS % (AUTO) 69.7 % (42.0-75.0); PLATELET COUNT 250 X10^3/uL (150.0-450.0); RED BLOOD COUNT 3.14 X10^6/uL (3.5-5.4); RED CELL DISTRIBUTION WIDTH 14.4 % (11.6-16.5); WHITE BLOOD COUNT 11.7 X10^3/uL (3.6-10.0)
[2019-06-06 06:58] LABS: ALANINE AMINOTRANSFERASE 14 Units/L (12-78); ALBUMIN 1.9 g/dL (3.4-5.0); ALKALINE PHOSPHATASE 72 Units/L (46-116); ASPARTATE AMINO TRANSFERASE 14 Units/L (15-37); BLOOD UREA NITROGEN 17 mg/dL (7-18); CALCIUM 8.6 mg/dL (8.5-10.1); CARBON DIOXIDE 25.2 mmol/L (21-32); CHLORIDE 102 mmol/L (98-107); COR CA(FOR HYPOALB) 10.3 mg/dL (8.5-10.1); COR NA(FOR HYPERGLY) 138 mmol/L (136-145); CREATININE 0.86 mg/dL (0.55-1.02); SODIUM 134 mmol/L (136-145); TOTAL PROTEIN 6.5 g/dL (6.4-8.2); eGFR NON BLACK RACES > 60 (>60)
[2019-06-06] MEDS: LEVAQUIN PREMIX IV 500 MG 500 MG/100 ML BAG IV SCH (08:20)
[2019-06-06] MEDS: GLUCOTROL PO SCH ×2 (08:21→20:40)
[2019-06-06] MEDS: JANUVIA PO SCH (08:21)
[2019-06-06] MEDS: LOVENOX INJ 40 MG SYR SC SCH (08:22)
--- NOTE | 2019-06-06 19:41 | PCM.PROG ---
Progress Note - Progress Note for Day of Date of Exam: 06/06/19 - Subjective Subjective: IS DAY 3 STATUS POST SURGICAL REPAIR DUE TO A LEFT SIDED DISPLACED FEMORAL NECK FRACTURE. TODAY, SHE IS ALERT AND ORIENTED, LYING IN BED ON MORNING ROUNDS. SHE REPORTS RIGHT HIP PAIN WITH WEIGHT BEARING THIS MORNING. ON EXAMINATION, HEART IS REGULAR IN RATE AND RHYTHM. BILATERAL LUNGS ARE NOTED WITH DIMINISHED LUNG SOUNDS THROUGHOUT. ABDOMEN IS ROUND, SOFT, AND NOTED WITH SUPRAPUBIC TENDERNESS. LEFT HIP IS NOTED WITH A SURGICAL DRESSING. DRESSING IS DRY AND INTACT. ABDUCTION PILLOW IN PLACE. HER VITALS THIS MORNING ARE: 97.7-93-20-96%-193/79. LABS WERE OBTAINED. ABNORMAL LAB VALUES INCLUDE THE FOLLOWING: WBC 11.7, RBC 3.14, HGB 9.7, HCT 28.5, SODIUM 134, GLUCOSE 275, AST 14, ALBUMIN 1.9, GLOBULIN 4.6. URINE CULTURE REVEALED GROWTH OF MRSA. SHE IS CURRENTLY RECEIVING NORMAL SALINE AT KVO, LEVAQUIN 500MG IV DAILY, MORPHINE 2- 4MG IV Q4H PRN, HUMULIN R SLIDING SCALE, AND LOVENOX 40MG SC DAILY. HOME MEDICATIONS WERE RESUMED. PHYSICAL THERAPY WILL CONTINUE TO WORK WITH PATIENT TODAY. SHE MAY BEAR WEIGHT TOLERATED, PER DR. ELIAS ORDERS. OTHERWISE, WE WILL FOLLOW UP WITH AM LABS AND CONTINUE TO MONITOR. - Past Medical Family Social History Past Med/Fam/Surg Hx: No changes since H&P Allergies: Allergies iodine Allergy (Verified 06/02/19 15:34) - Review of Systems ROS: No change since H&P - Vital Signs and I&O's Vital Signs: Temperature 97.8 F Pulse Rate [Right Brachial] 92 Pulse Rate 107 Respiratory Rate 20 Blood Pressure [Right Arm] 154/73 Blood Pressure 177/59 O2 Sat by Pulse Oximetry 96 Intake and Output: Intake & Output 06/04/19 06/05/19 06/06/19 06/07/19 11:59 11:59 11:59 11:59 Intake Total 1630 / 1630 1580 / 1580 2720 / 2720 1680 / 1680 Output Total 1999 Balance -370 / -370 1580 / 1580 2720 / 2720 1680 / 1680 - Physical Exam Oriented: Normal Eyes: Normal Ear: Normal Nose: Normal Throat: Normal Respiratory: Generalized, Diminished Cardiovascular: Normal : Normal Auscultation: Bowel Sounds: Normal Tenderness: Normal Skin: Wound Musculoskeletal: Left, Hip, Swelling, Deformity Psychiatric: Normal Mood Description: Calm Affect: Normal Speech Pattern: Clear, Appropriate - Laboratory and Diagnostics Result Diagrams: 06/06/19 05:29 06/06/19 05:29 Labs: 06/02/19 17:23 Urine,Catheterized Urine Culture - Final Methicillin Resis Staph Aureus Laboratory WBC 11.7 X10^3/uL (3.6-10.0) H 06/06/19 05:29 RBC 3.14 X10^6/uL (3.5-5.4) L 06/06/19 05:29 Hgb 9.7 g/dL (12.0-16.0) L 06/06/19 05:29 Hct 28.5 % (36.0-47.0) L 06/06/19 05:29 MCV 90.7 fL (80.0-100.0) 06/06/19 05: MCH 30.9 pg (27.0-34.0) 06/06/19 05:29 MCHC 34.0 g/dL (33.0-35.0) 06/06/19 05:29 RDW 14.4 % (11.6-16.5) 06/06/19 05:29 Plt Count 250 X10^3/uL (150.0-450.0) 06/06/19 05:29 MPV 7.5 fL (7.4-11.0) 06/06/19 05:29 Neut % (Auto) 69.7 % (42.0-75.0) 06/06/19 05:29 Lymph % (Auto) 17.4 % (21.0-51.0) L 06/06/19 05:29 [place] % (Auto) 10.7 % (0.0-13.0) 06/06/19 05:29 Eos % (Auto) 1.7 % (0.9-2.9) 06/06/19 05:29 Baso % (Auto) 0.5 % (0.2-1.0) 06/06/19 05:29 Neut # (Auto) 8.2 x10^3/uL (2.2-4.8) H 06/06/19 05:29 Lymph # (Auto) 2.0 X10^3/uL (1.3-2.9) 06/06/19 05:29 [place] # (Auto) 1.3 x10^3/uL (0.3-0.8) H 06/06/19 05:29 Eos # (Auto) 0.2 x10^3/uL (0.0-0.2) 06/06/19 05:29 Baso # (Auto) 0.1 X10^3/uL (0.0-0.1) 06/06/19 05:29 Absolute Nucleated RBC 0.0 /100WBC 06/06/19 05:29 PT 13.3 SECONDS (11.8-14.3) 06/03/19 06:19 INR Target Range - 06/03/19 06:19 INR 1.05 (0.8-1.3) 06/03/19 06:19 APTT 26.5 SECONDS (22.9-36.5) 06/03/19 06:19 PTT Comment - 06/03/19 06:19 Sodium 134 mmol/L (136-145) L 06/06/19 05:29 Corrected Sodium 138 mmol/L (136-145) 06/06/19 05:29 Potassium 3.6 mmol/L (3.5-5.1) 06/06/19 05:29 Chloride 102 mmol/L (98-107) 06/06/19 05:29 Carbon Dioxide 25.2 mmol/L (21-32) 06/06/19 05:29 BUN 17 mg/dL (7-18) 06/06/19 05:29 Creatinine 0.86 mg/dL (0.55-1.02) 06/06/19 05:29 Est GFR (MDRD) Af Amer > 60 (>60) 06/06/19 05:29 Est GFR (MDRD) Non-Af > 60 (>60) 06/06/19 05:29 Glucose 275 mg/dL (65-99) H 06/06/19 05:29 POC Glucose (mg/dL) 315 mg/dL (65-99) H 06/06/19 11:27 Calcium 8.6 mg/dL (8.5-10.1) 06/06/19 05:29 Corrected Calcium 10.3 mg/dL (8.5-10.1) H 06/06/19 05:29 Magnesium 1.9 mg/dL (1.7-2.9) 06/05/19 05:29 Total Bilirubin 0.30 mg/dL (0.2-1.0) 06/06/19 05:29 AST 14 Units/L (15-37) L 06/06/19 05:29 ALT 14 Units/L (12-78) 06/06/19 05:29 Alkaline Phosphatase 72 Units/L (46-116) 06/06/19 05:29 Total Protein 6.5 g/dL (6.4-8.2) 06/06/19 05:29 Albumin 1.9 g/dL (3.4-5.0) L 06/06/19 05:29 Globulin 4.6 g/dL (2.5-4.5) H 06/06/19 05:29 Albumin/Globulin Ratio 0.4 Ratio (1.1-2.1) L 06/06/19 05:29 Specimen Type Catherized urine 06/02/19 17:23 Urine Color Yellow (YELLOW) 06/02/19 17: Urine Appearance Hazy (CLEAR) 06/02/19 17: Urine pH 7.0 (5.0 - 8.0) 06/02/19 17:23 Ur Specific [place] 1.010 (1.000-1.030) 06/02/19 17:23 Urine Protein 2+ (NEGATIVE) 06/02/19 17: Urine Glucose (UA) 4+ (NEGATIVE) 06/02/19 17: Urine Ketones Negative (NEGATIVE) 06/02/19 17: Urine Occult Blood 1+ (NEGATIVE) 06/02/19 17: Urine Nitrite Negative (NEGATIVE) 06/02/19 17:23 Urine Bilirubin Negative (NEGATIVE) 06/02/19 17: Urine Urobilinogen Normal (NORMAL) 06/02/19 17:23 Ur Leukocyte Esterase 3+ (NEGATIVE) 06/02/19 17:23 Urine RBC 0-2 /HPF (0-3) 06/02/19 17:23 Urine WBC 10-20 /HPF (0-5) A 06/02/19 17:23 Ur Squamous Epith Cells Rare /HPF (NEGATIVE) 06/02/19 17:23 Urine Bacteria 3+ /HPF (NEGATIVE) 06/02/19 17:23 Ur Culture Indicated? Yes/culture set up 06/02/19 17:23 Tissue Pathology To follow 06/03/19 14:04 Blood Type A POSITIVE 06/02/19 18:29 Antibody Screen Negative 06/02/19 18:29 - Plan (1) Hip fracture, left Status: Acute Qualifiers: Encounter type: initial encounter Fracture type: closed Qualified Code(s): S72.002A - Fracture of unspecified part of neck of left femur, initial encounter for closed fracture Plan: STATUS POST REPAIR OF FEMORAL NECK FX, PAIN MANAGEMENT, PHYSICAL THERAPY, CONTINUE TO MONITOR (2) Acute hip pain Status: Acute Qualifiers: Laterality: left Qualified Code(s): M25.552 - Pain in left hip (3) Hypertension Status: Acute Qualifiers: Hypertension type: essential hypertension Qualified Code(s): I10 - Essential (primary) hypertension (4) Urinary tract infection Status: Acute Qualifiers: Urinary tract infection type: site unspecified Hematuria presence: without hematuria Qualified Code(s): N39.0 - Urinary tract infection, site not specified Plan: ROCEPHIN 1G IV DAILY, CONTINUE TO MONITOR
[2019-06-06] MEDS: SNACK - Diabetic Appropriate PO SCH (20:40)
[2019-06-07] MEDS: NEURONTIN CAP 300 MG PO SCH (05:47)
[2019-06-07] MEDS: HumuLIN R SUBCUT PRN (05:48)
[2019-06-07 06:39] LABS: BASOPHILS # (AUTO) 0.1 X10^3/uL (0.0-0.1); BASOPHILS % (AUTO) 1.1 % (0.2-1.0); EOSINOPHILS # (AUTO) 0.2 x10^3/uL (0.0-0.2); EOSINOPHILS % (AUTO) 2.5 % (0.9-2.9); HEMOGLOBIN 9.6 g/dL (12.0-16.0); LYMPHOCYTES # (AUTO) 2.1 X10^3/uL (1.3-2.9); LYMPHOCYTES % (AUTO) 21.7 % (21.0-51.0); MEAN CORPUSCULAR HEMOGLOBIN 31.1 pg (27.0-34.0); MEAN CORPUSCULAR HGB CONC 34.3 g/dL (33.0-35.0); MEAN CORPUSCULAR VOLUME 90.6 fL (80.0-100.0); MEAN PLATELET VOLUME 7.2 fL (7.4-11.0); MONOCYTES % (AUTO) 10.1 % (0.0-13.0); NEUTROPHILS # (AUTO) 6.3 x10^3/uL (2.2-4.8); NEUTROPHILS % (AUTO) 64.6 % (42.0-75.0); PLATELET COUNT 256 X10^3/uL (150.0-450.0); RED BLOOD COUNT 3.09 X10^6/uL (3.5-5.4); RED CELL DISTRIBUTION WIDTH 14.2 % (11.6-16.5); WHITE BLOOD COUNT 9.8 X10^3/uL (3.6-10.0)
[2019-06-07 06:50] LABS: ALANINE AMINOTRANSFERASE 17 Units/L (12-78); ALBUMIN 1.8 g/dL (3.4-5.0); ALKALINE PHOSPHATASE 77 Units/L (46-116); ASPARTATE AMINO TRANSFERASE 20 Units/L (15-37); BLOOD UREA NITROGEN 14 mg/dL (7-18); CALCIUM 8.8 mg/dL (8.5-10.1); CARBON DIOXIDE 25.2 mmol/L (21-32); CHLORIDE 102 mmol/L (98-107); COR CA(FOR HYPOALB) 10.6 mg/dL (8.5-10.1); COR NA(FOR HYPERGLY) 138 mmol/L (136-145); CREATININE 0.88 mg/dL (0.55-1.02); SODIUM 135 mmol/L (136-145); TOTAL PROTEIN 6.5 g/dL (6.4-8.2); eGFR NON BLACK RACES > 60 (>60)
[2019-06-07 08:26] VITALS: BP 143/68
[2019-06-07] MEDS: LOVENOX INJ 40 MG SYR SC SCH (10:00)
[2019-06-07] MEDS: GLUCOTROL PO SCH (10:02)
[2019-06-07] MEDS: JANUVIA PO SCH (10:02)
[2019-06-07] MEDS: LEVAQUIN PREMIX IV 500 MG 500 MG/100 ML BAG IV SCH (10:02)
== END 2019-06-07 10:30 | disposition home or self-care (01) | DRG 470 ==
LOC: ER 15:26 → MED/SURG 18:05
PROVIDERS: ADMIT Family Medicine; ATTEND Internal Medicine
DX: W01.0XXA Fall on same level from slipping, tripping and stumbling without subsequent striking against object, initial encounter; M25.552 Pain in left hip; N39.0 Urinary tract infection, site not specified; R42 Dizziness and giddiness; E11.65 Type 2 diabetes mellitus with hyperglycemia; Y92.9 Unspecified place or not applicable; I10 Essential (primary) hypertension; B95.62 Methicillin resistant Staphylococcus aureus infection as the cause of diseases classified elsewhere; S72.012A Unspecified intracapsular fracture of left femur, initial encounter for closed fracture; R94.31 Abnormal electrocardiogram [ECG] [EKG]; E78.49 Other hyperlipidemia
CPT/HCPCS: 36415; 51702; 71010; 71045; 72170; 73501; 80053; 81001; 82947; 83735; 85025; 85610; 85730; 86850; 86900; 86901; 87086; 87088; 87186; 93005; 93306; 93880; 96365; 96374; 96375; 97110; 97112; 97163; 97166; 97530; 99100; 99284; A4222; J0690; J0696; J1650; J1815; J1956; J2250; J2270; J2271; J2370; J2405; J3010; J3490; J7030; J7050; J7120

== ENCOUNTER 2019-06-07 10:30 | Inpatient (IN) ==
[2019-06-07] MEDS ORDERED: K-RIDER 10 MEQ/NS 100 ML 10 MEQ/100 ML BAG IV PRN (11:27)
[2019-06-07] MEDS ORDERED: POTASSIUM CHL 60 MEQ/NS 0.45% 500 ML IV PRN (11:27)
[2019-06-07] MEDS ORDERED: MICRO K EXTEN CAP 10 MEQ PO PRN (11:27)
[2019-06-07] MEDS ORDERED: NORCO 5/325 MG TAB PO PRN (11:27)
[2019-06-07] MEDS ORDERED: POTASSIUM CHL 40 MEQ/NS 0.45% 500 ML IV PRN (11:27)
[2019-06-07] MEDS ORDERED: MAGNESIUM SULFATE 1 GRAM/100 mL PREMIX 1 GM/100 ML BAG IV PRN (11:27)
[2019-06-07] MEDS ORDERED: KLOR-CON PO PRN (11:27)
[2019-06-07] MEDS ORDERED: POTASSIUM CHLORIDE LIQ 20 MEQ UDC PO PRN (11:27)
[2019-06-07] MEDS ORDERED: K-DUR TAB 20 MEQ PO PRN (11:27)
[2019-06-07] MEDS ORDERED: ULTRAM PO PRN (11:27)
[2019-06-07] MEDS ORDERED: HumuLIN R ONE (11:34)
[2019-06-07] MEDS: HumuLIN R SUBCUT PRN ×3 (11:42→20:26)
[2019-06-07] MEDS: NEURONTIN CAP 300 MG PO SCH ×2 (14:19→21:00)
--- NOTE | 2019-06-07 14:35 | PT/OTEVAL ---
PT/OT OBJECTIVES - HISTORY Prescription: PT consult Diagnosis: L s/p hip replacement Precautions: L WBAT, hip precautions, knee immobilizer OOB Prior Level of Function: Independent - COGNITION Mental Status: Alert, Oriented, Name, Date, Place, Anxious, Decreased Safety Awarenes Communication Status: Verbal, Hard of Hearing Ability to Follow Directions: 2 Step - PAIN Left Hip Pain Scale: Mild (3-4) Comments: with movement. - BED MOBILITY Rolling: Maximum, x1 Rolling Comment: turning to L side Scooting: Maximum, x1 Bridging: Maximum, x1 - TRANSFERS Supine to Sit: Moderate, x1 Sit to Stand: Maximum, x1 Sit or Stand Pivot: Maximum, x1 Safety (requires cues for:): Weight Bearing Precaution Safety Comment: L LE WBAT - BALANCE Static Sitting: Good Standing: Total Assist Dynamic Sitting: Fair Standing: Total Assist - ROM Right Hip ROM: Impaired Left LE ROM: WFL Comment: except L hip Right LE ROM: WFL - STRENGTH Left UE Strength Number: 3 Other comment: 3/5 grossly graded Right UE Strength Number: 3 Other comment: 3+/5 grossly graded Right Hip Strength Number: 3 Other comment: 3- Left LE Strength Number: 2 Other comment: 2- Right LE Strength Number: 2 Left Strength Number: 2 Other comment: 2- - GAIT Comments: NT d/t safety concerns PT/OT ASSESSMENT - PT Problem List: Decreased Bed Mobility, Decreased Transfers, Decreased Gait, Decreased Balance, Decreased Safety, Decreased LE Strength - PT GOALS Short Term Goals Days: 10 Mobility: Pt to improve bed mobility to supervision to increase independence Transfers: Pt to be @ min A c transfers such bed <-> commode to improve functio nal mob Gait: Pt to ambulate 50 ft c FWRW @ min A c FWRW to increase tolerance Balance: Pt to improve sitting balance to G to promote trunk control Intellectual Property Counsel Goals Days: 20 Mobility: Pt to be independent c bed mobility to allow retunr to PLOF Transfers: Pt to be independent c transfers to allow retunr to PLOF Gait: Pt to ambulate c FWRW 150 ft @ supervision to increase tolerance - PATIENT GOALS Goals Discussed with Patient/Family: Yes Rehabilitation Potential: Fair Weakness and Barriers: Pain - PLAN Suggested Treatment Plan: Bed Mobility Training, Therapeutic Activity, Gait Training, Neuro Re-education, Therapeutic Ex with HEP, Home Management, Patient Education, Family Education, Other - FREQUENCY AND DURATION PT: 6x Expected Continuation of Care at Discharge: Determined on Progress Anticipated Equipment Needs: HELENA
[2019-06-07] MEDS ORDERED: SNACK - Diabetic Appropriate PO SCH (20:00)
[2019-06-07] MEDS: NS 1000 ML 1,000 ML IV SCH (20:26)
[2019-06-07] MEDS: GLUCOTROL PO SCH (20:26)
[2019-06-07] MEDS: SNACK - Diabetic Appropriate PO SCH (20:26)
[2019-06-08] MEDS: NEURONTIN CAP 300 MG PO SCH ×3 (05:44→21:05)
[2019-06-08] MEDS: HumuLIN R SUBCUT PRN ×4 (05:46→22:53)
[2019-06-08 08:20] VITALS: BP 179/82
--- NOTE | 2019-06-08 08:56 | DR.UPDATE ---
H&P Update History and Physical Update: History and Physical reviewed and patient examined. Changes noted: Yes with the following: IS DAY 5 STATUS POST SURGICAL REPAIR DUE TO A LEFT SIDED DISPLACED FEMORAL NECK FRACTURE. SHE WAS CHANGED TO [facility] YESTERDAY FOR PHYSICAL THERAPY AND REHABILITATION. PHYSICAL THERAPY WILL WORK WITH HER DAILY. SHE IS ALLOWED WEIGHT BEARING TOLERATED. WE WILL PROVIDE WOUND CARE TO SURGICAL WOUND. WE WILL CONTINUE NORMAL SALINE AT KVO, LEVAQUIN 500MG IV DAILY, [place] 1 TAB Q6H PRN, HUMULIN R SLIDING SCALE, GABAPENTIN 300MG PO TID, ULTRAM 50MG PO TID PRN, THE POTASSIUM AND MAGNESIUM PROTOCOLS, GLUCOTROL 10MG PO BID, AND LOVENOX 40MG SC DAILY. OTHERWISE, WE WILL MONITOR LABS EVERY 3-4 DAYS AND MAKE ADJUSTMENTS NECESSARY. Prescription drug monitoring program results: PDMP reviewed and no concerns identified H&P Reviewed: Yes Patient was examined?: Yes
[2019-06-08] MEDS: JANUVIA PO SCH (09:42)
[2019-06-08] MEDS: GLUCOTROL PO SCH ×2 (09:42→21:05)
[2019-06-08] MEDS: LOVENOX INJ 40 MG SYR SC SCH (09:43)
[2019-06-08] MEDS: LEVAQUIN PREMIX IV 500 MG 500 MG/100 ML BAG IV SCH (09:43)
[2019-06-08 16:38] VITALS: BMI 28.4
[2019-06-08] MEDS: SNACK - Diabetic Appropriate PO SCH (21:00)
[2019-06-08] MEDS: NS 1000 ML 1,000 ML IV SCH (21:51)
[2019-06-09] MEDS: NEURONTIN CAP 300 MG PO SCH ×2 (05:45→14:35)
[2019-06-09] MEDS: HumuLIN R SUBCUT PRN ×3 (06:30→17:06)
[2019-06-09] MEDS: LOVENOX INJ 40 MG SYR SC SCH (09:31)
[2019-06-09] MEDS: GLUCOTROL PO SCH (09:31)
[2019-06-09] MEDS: JANUVIA PO SCH (09:31)
[2019-06-09] MEDS: LEVAQUIN PREMIX IV 500 MG 500 MG/100 ML BAG IV SCH (09:31)
--- NOTE | 2019-06-09 12:45 | VAS ---
LOWER EXT VENOUS, UNILATERALHISTORY: Left hip surgeryComparison:NoneTECHNIQUE: Multiple hoang scale and color flow Doppler images of the deep venous system were obtained of the left lower extremity.FINDINGS:The deep venous system of the left lower extremity were evaluated from the level of the common femoral vein through the popliteal vein. Normal color flow and augmentation can be observed .In addition, normal compression is seen throughout the deep venous system.IMPRESSION:1. Negative for DVT.Electronically signed by: LISA FULLER (Jun 09, 2019 12:43:45)
--- NOTE | 2019-06-09 12:52 | VAS ---
HISTORYRECENT LT HIP SX, NURSES UNABLE TO GET PEDAL PULSESTUDYLOWER EXT ARTERIALCOMPARISONNoneTECHNIQUEMultiple hoang scale and color flow Doppler images of the [left] lower extremity arterial system were obtained. Interrogation of the common femoral artery, superficial femoral artery, popliteal artery, and tibial arteries was performed.FINDINGSTriphasic waveforms are seen throughout the left lower extremity from the common femoral arterial system to the superficial femoral artery. The proximal popliteal artery was not visualized. The distal popliteal artery has a triphasic waveform. There are triphasic waveforms in the posterior tibial, anterior tibial, and dorsalis pedis arteries.IMPRESSIONNonvisualization of the proximal popliteal artery which is of uncertain significance otherwise, unremarkable visualized arterial vasculature in the left leg as above.Electronically signed by: ALEX HULL (Jun 09, 2019 12:51:24)
[2019-06-09 13:37] LABS: BASOPHILS % (AUTO) 0.5 % (0.2-1.0); EOSINOPHILS # (AUTO) 0.2 x10^3/uL (0.0-0.2); EOSINOPHILS % (AUTO) 2.3 % (0.9-2.9); HEMATOCRIT 30.1 % (36.0-47.0); HEMOGLOBIN 10.3 g/dL (12.0-16.0); LYMPHOCYTES # (AUTO) 1.7 X10^3/uL (1.3-2.9); LYMPHOCYTES % (AUTO) 18.6 % (21.0-51.0); MEAN CORPUSCULAR HEMOGLOBIN 31.5 pg (27.0-34.0); MEAN CORPUSCULAR HGB CONC 34.2 g/dL (33.0-35.0); MEAN CORPUSCULAR VOLUME 92.2 fL (80.0-100.0); MONOCYTES # (AUTO) 0.8 x10^3/uL (0.3-0.8); NEUTROPHILS # (AUTO) 6.2 x10^3/uL (2.2-4.8); NEUTROPHILS % (AUTO) 69.6 % (42.0-75.0); PLATELET COUNT 367 X10^3/uL (150.0-450.0); RED BLOOD COUNT 3.27 X10^6/uL (3.5-5.4); RED CELL DISTRIBUTION WIDTH 14.6 % (11.6-16.5)
[2019-06-09 13:51] LABS: ALANINE AMINOTRANSFERASE 19 Units/L (12-78); ALBUMIN 1.7 g/dL (3.4-5.0); ALKALINE PHOSPHATASE 78 Units/L (46-116); ASPARTATE AMINO TRANSFERASE 18 Units/L (15-37); BLOOD UREA NITROGEN 18 mg/dL (7-18); CALCIUM 8.7 mg/dL (8.5-10.1); CHLORIDE 98 mmol/L (98-107); COR CA(FOR HYPOALB) 10.5 mg/dL (8.5-10.1); COR NA(FOR HYPERGLY) 137 mmol/L (136-145); CREATININE 0.86 mg/dL (0.55-1.02); SODIUM 133 mmol/L (136-145); TOTAL PROTEIN 6.9 g/dL (6.4-8.2); eGFR NON BLACK RACES > 60 (>60)
[2019-06-09 13:59] LABS: BAND NEUTROPHILS % 5 % (0-10)
[2019-06-09 14:00] LABS: BASOPHILS % (MANUAL) 1 % (0-1); PLATELET MORPHOLOGY COMMENT NORMAL (NORMAL)
== END 2019-06-09 18:50 | disposition short-term general hospital (02) | DRG 536 ==
LOC: MED/SURG 10:30
PROVIDERS: ADMIT Internal Medicine; ATTEND Internal Medicine
DX: Y92.9 Unspecified place or not applicable; I10 Essential (primary) hypertension; E11.65 Type 2 diabetes mellitus with hyperglycemia; W01.0XXA Fall on same level from slipping, tripping and stumbling without subsequent striking against object, initial encounter; Z51.89 Encounter for other specified aftercare; S72.012A Unspecified intracapsular fracture of left femur, initial encounter for closed fracture
CPT/HCPCS: 36415; 80053; 83605; 85025; 85610; 87040; 93925; 93971; 97110; 97162; 97166; 97530; A4222; J1650; J1815; J1956; J7030

== ENCOUNTER 2019-06-13 15:35 | Inpatient (IN) ==
[2019-06-13] MEDS ORDERED: MAALOX or MYLANTA PO PRN (16:33)
[2019-06-13] MEDS ORDERED: TYLENOL 325 MG TAB PO PRN (16:33)
[2019-06-13] MEDS ORDERED: ROBITUSSIN DM PO PRN (16:37)
[2019-06-13] MEDS ORDERED: COLACE CAP 100 MG PO PRN (16:45)
[2019-06-13] MEDS ORDERED: MILK OF MAGNESIA PO PRN (16:45)
--- NOTE | 2019-06-13 17:21 | PT/OTEVAL ---
PT/OT OBJECTIVES - HISTORY Prescription: PT consult Diagnosis: s/p fx left hip with repair 06/03/2019 Precautions: falls, SOB; hip precautions, L LE WBAT PMH: DM type 2, Vit D insufficiency Prior Level of Function: Independent Other: Prior fall/fracture, pt indep at home and ambulates independently without AD. - COGNITION Mental Status: Alert, Oriented, Name, Date, Place, Purpose, Anxious, Decreased Safety Awarenes Communication Status: Verbal, Hard of Hearing Ability to Follow Directions: 2 Step - PAIN Left Hip Pain Scale: Mild (3-4) Comments: with movement. - BED MOBILITY Rolling: Moderate, x1 Scooting: Moderate, x1 Bridging: Moderate, x1 - TRANSFERS Supine to Sit: Moderate, x1 Sit to Stand: Maximum, x1 Sit or Stand Pivot: Maximum, x1 Safety (requires cues for:): Weight Bearing Precaution - BALANCE Static Sitting: Good Standing: Poor Dynamic Sitting: Fair Standing: Poor - ROM Left LE ROM: WFL Comment: except left hip Right LE ROM: WFL Left Hip ROM: Impaired - STRENGTH Left LE Strength Number: 2 Right LE Strength Number: 3 Other comment: 3 to 3+ Left Strength Number: 2 Other comment: 2- - GAIT Pt. ambulates how many feet?: 2 Amount of assistance required: Maximum Type of Assistive Device: Rolling Walker PT/OT ASSESSMENT - PT Problem List: Decreased Bed Mobility, Decreased Transfers, Decreased Gait, Decreased Balance, Decreased Safety, Decreased LE Strength - PT GOALS Short Term Goals Days: 5 Mobility: Pt to be independent c bed mobility to alllow return to PLOF Transfers: Pt to be independent c transfers to allow return to PLOF Gait: Pt to ambulate 50 ft @ touch A c AD to increase tolerance. Fpc Goals Days: 10 Gait: Pt to ambulate 120 ft @ supervision/touch A c AD to increase tolerance. Balance: Pt to improve standing balance to G to reduce risk from falls ROM/Strength: Pt to improve B LE mm strength 1-2 mm increments for stability - PATIENT GOALS Goals Discussed with Patient/Family: Yes Rehabilitation Potential: good Justification for Potential: motivated Weakness and Barriers: Pain - PLAN Suggested Treatment Plan: Bed Mobility Training, Therapeutic Activity, Gait Training, Neuro Re-education, Therapeutic Ex with HEP, Home Management, Patient Education, Family Education - FREQUENCY AND DURATION PT: 6x Expected Continuation of Care at Discharge: Determined on Progress
[2019-06-13 17:27] LABS: BASOPHILS # (AUTO) 0.1 X10^3/uL (0.0-0.1); BASOPHILS % (AUTO) 0.7 % (0.2-1.0); EOSINOPHILS # (AUTO) 0.1 x10^3/uL (0.0-0.2); HEMOGLOBIN 9.8 g/dL (12.0-16.0); LYMPHOCYTES % (AUTO) 22.3 % (21.0-51.0); MEAN CORPUSCULAR HEMOGLOBIN 30.6 pg (27.0-34.0); MEAN CORPUSCULAR HGB CONC 33.9 g/dL (33.0-35.0); MEAN CORPUSCULAR VOLUME 90.1 fL (80.0-100.0); MEAN PLATELET VOLUME 6.6 fL (7.4-11.0); MONOCYTES # (AUTO) 0.8 x10^3/uL (0.3-0.8); MONOCYTES % (AUTO) 8.5 % (0.0-13.0); NEUTROPHILS % (AUTO) 67.5 % (42.0-75.0); PLATELET COUNT 582 X10^3/uL (150.0-450.0); RED BLOOD COUNT 3.21 X10^6/uL (3.5-5.4); RED CELL DISTRIBUTION WIDTH 14.8 % (11.6-16.5); WHITE BLOOD COUNT 8.9 X10^3/uL (3.6-10.0)
[2019-06-13 17:36] LABS: ALANINE AMINOTRANSFERASE 31 Units/L (12-78); ALKALINE PHOSPHATASE 76 Units/L (46-116); ASPARTATE AMINO TRANSFERASE 36 Units/L (15-37); BLOOD UREA NITROGEN 14 mg/dL (7-18); CALCIUM 8.5 mg/dL (8.5-10.1); CARBON DIOXIDE 32.4 mmol/L (21-32); CHLORIDE 98 mmol/L (98-107); COR CA(FOR HYPOALB) 10.1 mg/dL (8.5-10.1); COR NA(FOR HYPERGLY) 137 mmol/L (136-145); CREATININE 0.84 mg/dL (0.55-1.02); SODIUM 133 mmol/L (136-145); TOTAL PROTEIN 7.2 g/dL (6.4-8.2); eGFR NON BLACK RACES > 60 (>60)
[2019-06-13 17:40] VITALS: BMI 27.3
[2019-06-13] MEDS: GLUCOTROL PO SCH (18:33)
[2019-06-13] MEDS: HumuLIN R SC PRN ×2 (18:33→21:45)
[2019-06-13] MEDS: SNACK - Diabetic Appropriate PO SCH (20:30)
[2019-06-13] MEDS ORDERED: COLACE CAP 100 MG PO SCH (21:00)
[2019-06-13] MEDS ORDERED: MILK OF MAGNESIA PO SCH (21:00)
[2019-06-13] MEDS: HEPARIN SODIUM INJ 5000 UNITS SC SCH (21:31)
[2019-06-13] MEDS: NORCO 5/325 MG TAB PO PRN (23:41)
[2019-06-14] MEDS: HEPARIN SODIUM INJ 5000 UNITS SC SCH ×3 (06:00→21:03)
[2019-06-14] MEDS: GLUCOTROL PO SCH ×2 (06:40→16:54)
[2019-06-14] MEDS: HumuLIN R SC PRN ×4 (06:56→22:05)
--- NOTE | 2019-06-14 08:42 | DR.UPDATE ---
H&P Update History and Physical Update: History and Physical reviewed and patient examined. Changes noted: Yes with the following: RETURNED TO OUR FACILITY YESTERDAY FOR SWINGBED PHYSICAL THERAPY AND REHAB. SHE IS STATUS POST LEFT HIP FX REPAIR ON 06/03. ON 06/09/19, PATIENT WAS TRANSFERRED TO SERVICES OF AND AT [facility] DUE TO NEGATIVE PULSES IN THE LEFT FOOT. THERE WAS ALSO DISCOLORATION NOTED TO LEFT FOOT ON THE DAY OF TRANSFER TO OUTSIDE FACILITY. REQUESTED TRANSFER FOR FURTHER EVALUATION BY ORTHOPEDIC/VASCULAR SURGEONS. AFTER EVALUATION, TREATMENT, AND STABALIZATION, PATIENT WAS TRANSFERRED BACK TO US FOR FURTHER THERAPY. WE WILL RESUME HER HOME MEDICATIONS AND HEPARIN 5,000 UNITS SC Q8H. WE WILL MONITOR LABS TWICE A WEEK AND PHYSICAL THERAPY WILL WORK WITH PATIENT DAILY. TODAY, ABNORMAL LABS ARE FOLLOWS: RBC 3.21, HGB 9.8, HCT 29.0, PLT COUNT 582, PTT 44.1, SODIUM 133, CARBON DIOXIDE 32.4, GLUCOSE 268, TOTAL BILI 0.10, ALBUMIN 2.0, GLOBULIN 5.2. H&P Reviewed: Yes Patient was examined?: Yes
[2019-06-14] MEDS ORDERED: LEVAQUIN TAB 500 MG PO SCH (09:00)
[2019-06-14] MEDS: PROTONIX TAB 40 MG PO SCH (09:18)
[2019-06-14] MEDS: VSL#3 PO SCH (09:18)
[2019-06-14] MEDS: JANUVIA PO SCH (09:18)
[2019-06-14] MEDS: LEVAQUIN TAB 500 MG PO SCH (09:18)
--- NOTE | 2019-06-14 17:52 | PT/OTEVAL ---
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 Other: On PLOF, pt is independent in all areas of ADLs, functional transfers and ambulation. - COGNITION Mental Status: Alert, Oriented, Name, Date, Place, Purpose, Decreased Safety Awarenes Communication Status: Verbal Ability to Follow Directions: 3 Step - PAIN Left Hip Pain Scale: Mild (3-4) Comments: with movement. - TRANSFERS Supine to Sit: Minimal Sit to Stand: Minimal Sit or Stand Pivot: Minimal Safety (requires cues for:): Weight Bearing Precaution, Hip Precautions, Hand Placement Precaution - ADL'S Feeding: Setup Grooming: Setup Upper Body ADL: Minimum Lower Body ADL: Minimum Toileting: Moderate - BALANCE Static Sitting: Good Standing: Poor Dynamic Sitting: Fair Standing: Poor - HAND DOMINANCE Extremity Function: Hand Dominance: Left - ROM Left UE ROM: WFL Muscle Tone: WFL Right UE ROM: WFL Muscle Tone: WFL - STRENGTH Right LE Strength Number: 3 Other comment: 3 to 3+ Left Strength Number: 2 Other comment: 2- Left UE Strength Number: 3 Other comment: 3/5 grossly graded Right UE Strength Number: 3 Other comment: 3+/5 grossly graded Right Hip Strength Number: 3 Other comment: 3- Left LE Strength Number: 2 Other comment: 2- PT/OT ASSESSMENT - OT Problem List: Decreased Mobility ADL's, Decreased Safety Aware, Decreased Dressing, Decreased Bathing, Decreased Grooming, Decreased UE Strength - PT GOALS Short Term Goals Days: 5 Mobility: Pt to be independent c bed mobility to alllow return to PLOF Transfers: Pt to be independent c transfers to allow return to PLOF Gait: Pt to ambulate 50 ft @ touch A c AD to increase tolerance. Block Hacker Goals Days: 10 Gait: Pt to ambulate 120 ft @ supervision/touch A c AD to increase tolerance. Balance: Pt to improve standing balance to G to reduce risk from falls ROM/Strength: Pt to improve B LE mm strength 1-2 mm increments for stability - OT GOALS Block Hacker Goals Days: 20 Mobility for ADL's: Pt to improve on functional and toilet xfers to independent. Safety Awareness: Pt will demonstrate G safety awareness during performance of ADLs Dressing: Pt to improve on total body dressing using AD as needed to independent. Bathing: Pt will improve on bathing skills to set-up Grooming: Pt will improve on grooming skills to independent. Upper Ext. Strength/Use: Pt will increase BUE strength to 5/5 for increasing independence on ADLs Short Term Goals Days: 10 Mobility for ADL's: Pt to improve on functional and toilet xfers using AD to set-up Safety Awareness: Pt will demonstrate G safety awareness during performance of ADLs Dressing: Pt to improve on total body dressing using AD as needed to set-up Bathing: Pt will improve on bathing skills to supervision/touch A Grooming: Pt will improve on grooming skills to set-up. Upper Ext. Strength/Use: Pt will increase BUE strength to 4+/5 for increasing independence on ADLs - PATIENT GOALS Patient/Family Goals: To improve on my strength and go home Goals Discussed with Patient/Family: Yes Rehabilitation Potential: Good Justification for Potential: G motivation. Weakness and Barriers: Pain - PLAN Suggested Treatment Plan: Therapeutic Activity, Self Care Training, Neuro Re- education, Therapeutic Ex with HEP, Patient Education, Family Education - FREQUENCY AND DURATION OT: 5x/wk x hospital stay Expected Continuation of Care at Discharge: Determined on Progress Anticipated Equipment Needs: Hip kit, bedside commode
[2019-06-14] MEDS: SNACK - Diabetic Appropriate PO SCH (20:40)
[2019-06-15] MEDS: HEPARIN SODIUM INJ 5000 UNITS SC SCH ×3 (06:22→21:10)
[2019-06-15] MEDS: VSL#3 PO SCH (09:03)
[2019-06-15] MEDS: GLUCOTROL PO SCH ×2 (09:04→17:20)
[2019-06-15] MEDS: LEVAQUIN TAB 500 MG PO SCH (09:04)
[2019-06-15] MEDS: PROTONIX TAB 40 MG PO SCH (09:04)
[2019-06-15] MEDS: JANUVIA PO SCH (09:04)
[2019-06-15] MEDS: NORCO 5/325 MG TAB PO PRN (09:07)
[2019-06-15] MEDS: HumuLIN R SC PRN ×4 (12:46→21:20)
[2019-06-15] MEDS: SNACK - Diabetic Appropriate PO SCH (20:40)
[2019-06-16] MEDS: NORCO 5/325 MG TAB PO PRN ×3 (01:51→23:46)
[2019-06-16] MEDS: HEPARIN SODIUM INJ 5000 UNITS SC SCH ×3 (06:25→21:33)
[2019-06-16] MEDS: JANUVIA PO SCH (09:40)
[2019-06-16] MEDS: VSL#3 PO SCH (09:40)
[2019-06-16] MEDS: LEVAQUIN TAB 500 MG PO SCH (09:40)
[2019-06-16] MEDS: PROTONIX TAB 40 MG PO SCH (09:40)
[2019-06-16] MEDS: GLUCOTROL PO SCH ×2 (09:45→17:35)
[2019-06-16] MEDS: HumuLIN R SC PRN (17:35)
[2019-06-16] MEDS: BENADRYL CAP/TAB 25 MG PO PRN (21:35)
[2019-06-16] MEDS: SNACK - Diabetic Appropriate PO SCH (21:49)
[2019-06-17 05:22] LABS: BASOPHILS # (AUTO) 0.1 X10^3/uL (0.0-0.1); BASOPHILS % (AUTO) 0.9 % (0.2-1.0); EOSINOPHILS # (AUTO) 0.2 x10^3/uL (0.0-0.2); EOSINOPHILS % (AUTO) 2.2 % (0.9-2.9); HEMATOCRIT 28.2 % (36.0-47.0); HEMOGLOBIN 9.6 g/dL (12.0-16.0); LYMPHOCYTES # (AUTO) 3.3 X10^3/uL (1.3-2.9); LYMPHOCYTES % (AUTO) 33.4 % (21.0-51.0); MEAN CORPUSCULAR HEMOGLOBIN 30.8 pg (27.0-34.0); MEAN CORPUSCULAR VOLUME 90.5 fL (80.0-100.0); MEAN PLATELET VOLUME 6.6 fL (7.4-11.0); MONOCYTES # (AUTO) 0.8 x10^3/uL (0.3-0.8); MONOCYTES % (AUTO) 7.9 % (0.0-13.0); NEUTROPHILS # (AUTO) 5.5 x10^3/uL (2.2-4.8); NEUTROPHILS % (AUTO) 55.6 % (42.0-75.0); PLATELET COUNT 630 X10^3/uL (150.0-450.0); RED BLOOD COUNT 3.11 X10^6/uL (3.5-5.4); RED CELL DISTRIBUTION WIDTH 14.8 % (11.6-16.5); WHITE BLOOD COUNT 9.9 X10^3/uL (3.6-10.0)
[2019-06-17 05:42] LABS: PLATELET MORPHOLOGY COMMENT NORMAL (NORMAL)
[2019-06-17 05:50] LABS: ALANINE AMINOTRANSFERASE 24 Units/L (12-78); ALBUMIN 2.1 g/dL (3.4-5.0); ALKALINE PHOSPHATASE 70 Units/L (46-116); ASPARTATE AMINO TRANSFERASE 22 Units/L (15-37); BLOOD UREA NITROGEN 23 mg/dL (7-18); CALCIUM 9.1 mg/dL (8.5-10.1); CARBON DIOXIDE 33.3 mmol/L (21-32); CHLORIDE 98 mmol/L (98-107); COR CA(FOR HYPOALB) 10.6 mg/dL (8.5-10.1); COR NA(FOR HYPERGLY) 138 mmol/L (136-145); SODIUM 135 mmol/L (136-145); eGFR NON BLACK RACES > 60 (>60)
[2019-06-17] MEDS: HEPARIN SODIUM INJ 5000 UNITS SC SCH ×4 (06:12→21:07)
[2019-06-17] MEDS: HumuLIN R SC PRN ×4 (06:14→21:08)
[2019-06-17] MEDS: PROTONIX TAB 40 MG PO SCH (09:13)
[2019-06-17] MEDS: LEVAQUIN TAB 500 MG PO SCH (09:13)
[2019-06-17] MEDS: JANUVIA PO SCH (09:13)
[2019-06-17] MEDS: VSL#3 PO SCH (09:13)
[2019-06-17] MEDS: GLUCOTROL PO SCH ×2 (09:14→17:00)
[2019-06-17] MEDS: SNACK - Diabetic Appropriate PO SCH (21:05)
[2019-06-17] MEDS: NORCO 5/325 MG TAB PO PRN (21:09)
[2019-06-17] MEDS: BENADRYL CAP/TAB 25 MG PO PRN (21:09)
[2019-06-18] MEDS: HEPARIN SODIUM INJ 5000 UNITS SC SCH ×3 (06:46→21:09)
[2019-06-18] MEDS: VSL#3 PO SCH (09:18)
[2019-06-18] MEDS: LEVAQUIN TAB 500 MG PO SCH (09:19)
[2019-06-18] MEDS: JANUVIA PO SCH (09:19)
[2019-06-18] MEDS: GLUCOTROL PO SCH ×2 (09:19→17:20)
[2019-06-18] MEDS: PROTONIX TAB 40 MG PO SCH (09:19)
[2019-06-18] MEDS: NORCO 5/325 MG TAB PO PRN (09:21)
[2019-06-18] MEDS: HumuLIN R SC PRN ×3 (12:05→21:09)
[2019-06-18] MEDS: SNACK - Diabetic Appropriate PO SCH (21:08)
[2019-06-19] MEDS: NORCO 5/325 MG TAB PO PRN ×2 (00:35→09:00)
[2019-06-19 05:17] LABS: BASOPHILS # (AUTO) 0.1 X10^3/uL (0.0-0.1); BASOPHILS % (AUTO) 0.7 % (0.2-1.0); EOSINOPHILS # (AUTO) 0.3 x10^3/uL (0.0-0.2); EOSINOPHILS % (AUTO) 2.7 % (0.9-2.9); HEMATOCRIT 28.6 % (36.0-47.0); HEMOGLOBIN 9.6 g/dL (12.0-16.0); LYMPHOCYTES # (AUTO) 3.6 X10^3/uL (1.3-2.9); LYMPHOCYTES % (AUTO) 38.8 % (21.0-51.0); MEAN CORPUSCULAR HEMOGLOBIN 30.5 pg (27.0-34.0); MEAN CORPUSCULAR HGB CONC 33.5 g/dL (33.0-35.0); MEAN CORPUSCULAR VOLUME 90.9 fL (80.0-100.0); MEAN PLATELET VOLUME 6.4 fL (7.4-11.0); MONOCYTES # (AUTO) 0.7 x10^3/uL (0.3-0.8); MONOCYTES % (AUTO) 7.6 % (0.0-13.0); NEUTROPHILS # (AUTO) 4.6 x10^3/uL (2.2-4.8); NEUTROPHILS % (AUTO) 50.2 % (42.0-75.0); PLATELET COUNT 636 X10^3/uL (150.0-450.0); RED BLOOD COUNT 3.14 X10^6/uL (3.5-5.4); WHITE BLOOD COUNT 9.2 X10^3/uL (3.6-10.0)
[2019-06-19 05:35] LABS: PLATELET MORPHOLOGY COMMENT NORMAL (NORMAL)
[2019-06-19] MEDS: HEPARIN SODIUM INJ 5000 UNITS SC SCH ×3 (05:36→21:31)
[2019-06-19 05:47] LABS: ALANINE AMINOTRANSFERASE 32 Units/L (12-78); ALBUMIN 2.3 g/dL (3.4-5.0); ALKALINE PHOSPHATASE 63 Units/L (46-116); ASPARTATE AMINO TRANSFERASE 31 Units/L (15-37); BLOOD UREA NITROGEN 20 mg/dL (7-18); CALCIUM 9.2 mg/dL (8.5-10.1); CARBON DIOXIDE 33.1 mmol/L (21-32); CHLORIDE 102 mmol/L (98-107); COR CA(FOR HYPOALB) 10.6 mg/dL (8.5-10.1); COR NA(FOR HYPERGLY) 139 mmol/L (136-145); CREATININE 0.84 mg/dL (0.55-1.02); SODIUM 138 mmol/L (136-145); TOTAL PROTEIN 7.1 g/dL (6.4-8.2); eGFR NON BLACK RACES > 60 (>60)
[2019-06-19] MEDS: LEVAQUIN TAB 500 MG PO SCH (09:00)
[2019-06-19] MEDS: GLUCOTROL PO SCH ×2 (09:00→17:22)
[2019-06-19] MEDS: VSL#3 PO SCH (09:00)
[2019-06-19] MEDS: PROTONIX TAB 40 MG PO SCH (09:00)
[2019-06-19] MEDS: JANUVIA PO SCH (09:00)
[2019-06-19] MEDS: SNACK - Diabetic Appropriate PO SCH (21:31)
[2019-06-19] MEDS: HumuLIN R SC PRN (21:31)
[2019-06-20] MEDS: NORCO 5/325 MG TAB PO PRN
[2019-06-20] MEDS: HEPARIN SODIUM INJ 5000 UNITS SC SCH ×3 (05:55→21:33)
[2019-06-20] MEDS: VSL#3 PO SCH (09:21)
[2019-06-20] MEDS: GLUCOTROL PO SCH ×2 (09:22→17:19)
[2019-06-20] MEDS: JANUVIA PO SCH (09:22)
[2019-06-20] MEDS: LEVAQUIN TAB 500 MG PO SCH (09:22)
[2019-06-20] MEDS: PROTONIX TAB 40 MG PO SCH (09:23)
[2019-06-20] MEDS: HumuLIN R SC PRN ×2 (12:01→21:40)
[2019-06-20] MEDS: SNACK - Diabetic Appropriate PO SCH (20:00)
[2019-06-21] MEDS: NORCO 5/325 MG TAB PO PRN ×3 (00:51→20:23)
[2019-06-21] MEDS: HEPARIN SODIUM INJ 5000 UNITS SC SCH ×3 (06:23→22:00)
[2019-06-21] MEDS: GLUCOTROL PO SCH ×2 (06:25→17:27)
[2019-06-21] MEDS: JANUVIA PO SCH (08:50)
[2019-06-21] MEDS: PROTONIX TAB 40 MG PO SCH (08:50)
[2019-06-21] MEDS: VSL#3 PO SCH (08:53)
--- NOTE | 2019-06-21 09:00 | PCM.PROG ---
Progress Note - Progress Note for Day of Date of Exam: 06/21/19 - Subjective Subjective: IS SWINGBED STATUS FOR PHYSICAL THERAPY AND REHAB. SHE IS STATUS POST LEFT HIP FX REPAIN ON 06/03. TODAY, SHE IS ALERT AND ORIENTED, LYING IN BED ON MORNING ROUNDS. SHE REPORTS MILD LEFT HIP PAIN, OTHERWISE, DENIES COMPLAINTS. ON EXAMINATION, HEART IS REGULAR IN RATE AND RHYTHM. BILATERAL LUNGS ARE CLEAR TO AUSCULTATION. ABDOMEN IS ROUND, SOFT, AND NON-TENDER WITH NORMAL BOWEL SOUNDS NOTED IN ALL QUADRANTS. LEFT HIP IS NOTED WITH A DRESSING. DRESSING IS DRY AND INTACT WIHT NO S/SX INFECTION NOTED. HER VITALS THIS MORNING ARE 98.0-88-18-94%-182/86. LABS WERE OBTAINED. ABNORMAL LAB VALUES INCLUDE THE FOLLOWING: RBC 3.14, HGB 9.6, HCT 28.6, CARBON DIOXIDE 33.1, BUN 20, GLUCOSE 1 62, TOTAL BILI 0.10, ALBUMIN 2.3, GLOBULIN 4.8. PHYSICAL THERAPY REPORTS THAT PATIENT IS COOPERATING WELL. THEY WILL CONTINUE TO WORK WITH HER DAILY. OTHERWISE, WE WILL CONTINUE WITH CURRENT PLAN OF CARE AND CONTINUE TO MONITOR. - Past Medical Family Social History Allergies: Allergies iodine Allergy (Verified 06/02/19 15:34) - Vital Signs and I&O's Vital Signs: Temperature 97.7 F Pulse Rate [Right Radial] 89 Pulse Rate 83 Respiratory Rate 18 Blood Pressure [Right Arm] 167/74 Blood Pressure [Left Arm] 145/69 Blood Pressure 177/59 O2 Sat by Pulse Oximetry 96 Intake and Output: Intake & Output 06/18/19 06/19/19 06/20/19 06/21/19 11:59 11:59 11:59 11:59 Intake Total 2800 / 2800 2350 / 2350 1909 2880 / 2880 Output Total 6 / 6 Balance 2794 / 2794 2350 / 2350 1909 2880 / 2880 - Physical Exam Oriented: Normal Eyes: Normal Ear: Normal Nose: Normal Throat: Normal Respiratory: Generalized, Diminished Cardiovascular: Normal : Normal Auscultation: Bowel Sounds: Normal Palpation: Normal Tenderness: Normal Skin: Wound Musculoskeletal: Left, Hip, Tender Psychiatric: Normal Mood Description: Calm Affect: Normal Speech Pattern: Clear, Appropriate - Laboratory and Diagnostics Result Diagrams: 06/27/19 05:22 06/27/19 05:22 Labs: Laboratory WBC 9.2 X10^3/uL (3.6-10.0) 06/19/19 05:04 RBC 3.14 X10^6/uL (3.5-5.4) L 06/19/19 05:04 Hgb 9.6 g/dL (12.0-16.0) L 06/19/19 05:04 Hct 28.6 % (36.0-47.0) L 06/19/19 05:04 MCV 90.9 fL (80.0-100.0) 06/19/19 05:04 MCH 30.5 pg (27.0-34.0) 06/19/19 05:04 MCHC 33.5 g/dL (33.0-35.0) 06/19/19 05:04 RDW 15.0 % (11.6-16.5) 06/19/19 05:04 Plt Count 636 X10^3/uL (150.0-450.0) H 06/19/19 05:04 Plt Count Comment Increased (ADEQUATE) A 06/19/19 05:04 MPV 6.4 fL (7.4-11.0) L 06/19/19 05:04 Neut % (Auto) 50.2 % (42.0-75.0) 06/19/19 05:04 Lymph % (Auto) 38.8 % (21.0-51.0) 06/19/19 05:04 [place] % (Auto) 7.6 % (0.0-13.0) 06/19/19 05:04 Eos % (Auto) 2.7 % (0.9-2.9) 06/19/19 05:04 Baso % (Auto) 0.7 % (0.2-1.0) 06/19/19 05:04 Neut # (Auto) 4.6 x10^3/uL (2.2-4.8) 06/19/19 05:04 Lymph # (Auto) 3.6 X10^3/uL (1.3-2.9) H 06/19/19 05:04 [place] # (Auto) 0.7 x10^3/uL (0.3-0.8) 06/19/19 05:04 Eos # (Auto) 0.3 x10^3/uL (0.0-0.2) H 06/19/19 05:04 Baso # (Auto) 0.1 X10^3/uL (0.0-0.1) 06/19/19 05:04 Absolute Nucleated RBC 0.1 /100WBC 06/19/19 05:04 Plt Morphology Comment Normal (NORMAL) 06/19/19 05:04 RBC Morphology Normal (NORMAL) 06/19/19 05:04 APTT 42.2 SECONDS (22.9-36.5) H 06/18/19 05:15 PTT Comment - 06/18/19 05:15 Sodium 138 mmol/L (136-145) 06/19/19 05:04 Corrected Sodium 139 mmol/L (136-145) 06/19/19 05:04 Potassium 3.9 mmol/L (3.5-5.1) 06/19/19 05:04 Chloride 102 mmol/L (98-107) 06/19/19 05:04 Carbon Dioxide 33.1 mmol/L (21-32) H 06/19/19 05:04 BUN 20 mg/dL (7-18) H 06/19/19 05:04 Creatinine 0.84 mg/dL (0.55-1.02) 06/19/19 05:04 Est GFR (MDRD) Af Amer > 60 (>60) 06/19/19 05:04 Est GFR (MDRD) Non-Af > 60 (>60) 06/19/19 05:04 Glucose 162 mg/dL (65-99) H 06/19/19 05:04 POC Glucose (mg/dL) 200 mg/dL (65-99) H 06/20/19 16:03 Calcium 9.2 mg/dL (8.5-10.1) 06/19/19 05:04 Corrected Calcium 10.6 mg/dL (8.5-10.1) H 06/19/19 05:04 Total Bilirubin 0.10 mg/dL (0.2-1.0) L 06/19/19 05:04 AST 31 Units/L (15-37) 06/19/19 05:04 ALT 32 Units/L (12-78) 06/19/19 05:04 Alkaline Phosphatase 63 Units/L (46-116) 06/19/19 05:04 Total Protein 7.1 g/dL (6.4-8.2) 06/19/19 05:04 Albumin 2.3 g/dL (3.4-5.0) L 06/19/19 05:04 Globulin 4.8 g/dL (2.5-4.5) H 06/19/19 05:04 Albumin/Globulin Ratio 0.5 Ratio (1.1-2.1) L 06/19/19 05:04 - Plan (1) Status post fracture of left hip Status: Acute Plan: PHYSICAL THERAPY, WOUND CARE, PAIN MANAGEMENT
[2019-06-21] MEDS: HumuLIN R SC PRN ×2 (17:27→22:04)
[2019-06-21] MEDS: SNACK - Diabetic Appropriate PO SCH (20:24)
[2019-06-22] MEDS: HEPARIN SODIUM INJ 5000 UNITS SC SCH ×3 (06:06→21:08)
[2019-06-22] MEDS: GLUCOTROL PO SCH ×2 (06:28→15:59)
[2019-06-22] MEDS: JANUVIA PO SCH (09:31)
[2019-06-22] MEDS: PROTONIX TAB 40 MG PO SCH (09:31)
[2019-06-22] MEDS: VSL#3 PO SCH (09:32)
[2019-06-22] MEDS: HumuLIN R SC PRN ×2 (11:19→15:58)
[2019-06-22] MEDS: NORCO 5/325 MG TAB PO PRN (21:08)
[2019-06-22] MEDS: SNACK - Diabetic Appropriate PO SCH (21:10)
[2019-06-23] MEDS: HEPARIN SODIUM INJ 5000 UNITS SC SCH ×3 (05:48→21:30)
[2019-06-23] MEDS: GLUCOTROL PO SCH ×2 (06:30→16:20)
[2019-06-23] MEDS: VSL#3 PO SCH (09:20)
[2019-06-23] MEDS: PROTONIX TAB 40 MG PO SCH (09:20)
[2019-06-23] MEDS: JANUVIA PO SCH (09:20)
[2019-06-23] MEDS: HumuLIN R SC PRN ×3 (16:20→21:00)
[2019-06-23] MEDS: TAB-A-VITE PO SCH (18:11)
[2019-06-23] MEDS: SNACK - Diabetic Appropriate PO SCH (21:28)
[2019-06-23] MEDS: NORCO 5/325 MG TAB PO PRN (21:31)
[2019-06-24] MEDS: HEPARIN SODIUM INJ 5000 UNITS SC SCH ×3 (05:30→22:08)
[2019-06-24] MEDS: GLUCOTROL PO SCH ×2 (06:04→16:38)
[2019-06-24 06:15] LABS: BASOPHILS # (AUTO) 0.1 X10^3/uL (0.0-0.1); BASOPHILS % (AUTO) 0.8 % (0.2-1.0); EOSINOPHILS # (AUTO) 0.1 x10^3/uL (0.0-0.2); EOSINOPHILS % (AUTO) 1.6 % (0.9-2.9); HEMATOCRIT 29.7 % (36.0-47.0); HEMOGLOBIN 10.1 g/dL (12.0-16.0); LYMPHOCYTES # (AUTO) 3.5 X10^3/uL (1.3-2.9); LYMPHOCYTES % (AUTO) 42.9 % (21.0-51.0); MEAN CORPUSCULAR HEMOGLOBIN 30.9 pg (27.0-34.0); MEAN CORPUSCULAR HGB CONC 33.8 g/dL (33.0-35.0); MEAN CORPUSCULAR VOLUME 91.4 fL (80.0-100.0); MEAN PLATELET VOLUME 6.7 fL (7.4-11.0); MONOCYTES # (AUTO) 0.8 x10^3/uL (0.3-0.8); MONOCYTES % (AUTO) 9.5 % (0.0-13.0); NEUTROPHILS # (AUTO) 3.7 x10^3/uL (2.2-4.8); NEUTROPHILS % (AUTO) 45.2 % (42.0-75.0); PLATELET COUNT 502 X10^3/uL (150.0-450.0); RED BLOOD COUNT 3.25 X10^6/uL (3.5-5.4); RED CELL DISTRIBUTION WIDTH 15.3 % (11.6-16.5); WHITE BLOOD COUNT 8.2 X10^3/uL (3.6-10.0)
[2019-06-24 06:28] LABS: ALANINE AMINOTRANSFERASE 23 Units/L (12-78); ALBUMIN 2.7 g/dL (3.4-5.0); ALKALINE PHOSPHATASE 51 Units/L (46-116); ASPARTATE AMINO TRANSFERASE 18 Units/L (15-37); BLOOD UREA NITROGEN 29 mg/dL (7-18); CALCIUM 9.5 mg/dL (8.5-10.1); CARBON DIOXIDE 32.7 mmol/L (21-32); CHLORIDE 101 mmol/L (98-107); COR CA(FOR HYPOALB) 10.5 mg/dL (8.5-10.1); CREATININE 0.84 mg/dL (0.55-1.02); SODIUM 137 mmol/L (136-145); TOTAL PROTEIN 7.5 g/dL (6.4-8.2); eGFR NON BLACK RACES > 60 (>60)
[2019-06-24] MEDS: NORCO 5/325 MG TAB PO PRN ×2 (08:43→20:04)
[2019-06-24] MEDS: PROTONIX TAB 40 MG PO SCH (08:44)
[2019-06-24] MEDS: VSL#3 PO SCH (08:44)
[2019-06-24] MEDS: TAB-A-VITE PO SCH (08:45)
[2019-06-24] MEDS: JANUVIA PO SCH (08:45)
[2019-06-24] MEDS: HumuLIN R SC PRN ×2 (16:55→20:02)
[2019-06-24] MEDS: SNACK - Diabetic Appropriate PO SCH ×2 (21:00→22:06)
[2019-06-24] MEDS: PREMARIN VAG VG SCH (22:07)
[2019-06-25] MEDS: HEPARIN SODIUM INJ 5000 UNITS SC SCH ×3 (05:53→21:52)
[2019-06-25] MEDS: GLUCOTROL PO SCH ×2 (06:08→18:48)
[2019-06-25] MEDS: NORCO 5/325 MG TAB PO PRN ×2 (08:15→23:45)
[2019-06-25] MEDS: JANUVIA PO SCH (08:15)
[2019-06-25] MEDS: PROTONIX TAB 40 MG PO SCH (08:17)
[2019-06-25] MEDS: VSL#3 PO SCH (08:17)
[2019-06-25] MEDS: TAB-A-VITE PO SCH (08:17)
[2019-06-25] MEDS: SNACK - Diabetic Appropriate PO SCH (21:00)
[2019-06-25] MEDS: PREMARIN VAG VG SCH (21:52)
[2019-06-25] MEDS: HumuLIN R SC PRN (21:55)
[2019-06-26] MEDS: HEPARIN SODIUM INJ 5000 UNITS SC SCH ×3 (06:21→21:35)
[2019-06-26] MEDS: GLUCOTROL PO SCH ×2 (06:22→16:48)
[2019-06-26] MEDS: PROTONIX TAB 40 MG PO SCH (09:18)
[2019-06-26] MEDS: NORCO 5/325 MG TAB PO PRN ×2 (09:18→23:13)
[2019-06-26] MEDS: TAB-A-VITE PO SCH (09:18)
[2019-06-26] MEDS: JANUVIA PO SCH (09:18)
[2019-06-26] MEDS: VSL#3 PO SCH (09:18)
[2019-06-26] MEDS: HumuLIN R SC PRN ×2 (13:45→22:38)
[2019-06-26] MEDS: SNACK - Diabetic Appropriate PO SCH (20:34)
[2019-06-26] MEDS: PREMARIN VAG VG SCH (21:30)
[2019-06-27 05:48] LABS: BASOPHILS % (AUTO) 0.8 % (0.2-1.0); EOSINOPHILS # (AUTO) 0.2 x10^3/uL (0.0-0.2); EOSINOPHILS % (AUTO) 2.5 % (0.9-2.9); HEMATOCRIT 28.5 % (36.0-47.0); HEMOGLOBIN 9.6 g/dL (12.0-16.0); LYMPHOCYTES # (AUTO) 2.9 X10^3/uL (1.3-2.9); LYMPHOCYTES % (AUTO) 43.7 % (21.0-51.0); MEAN CORPUSCULAR HEMOGLOBIN 31.1 pg (27.0-34.0); MEAN CORPUSCULAR HGB CONC 33.8 g/dL (33.0-35.0); MEAN CORPUSCULAR VOLUME 91.8 fL (80.0-100.0); MEAN PLATELET VOLUME 6.9 fL (7.4-11.0); MONOCYTES # (AUTO) 0.6 x10^3/uL (0.3-0.8); MONOCYTES % (AUTO) 9.6 % (0.0-13.0); NEUTROPHILS # (AUTO) 2.8 x10^3/uL (2.2-4.8); NEUTROPHILS % (AUTO) 43.4 % (42.0-75.0); PLATELET COUNT 394 X10^3/uL (150.0-450.0); RED CELL DISTRIBUTION WIDTH 15.9 % (11.6-16.5); WHITE BLOOD COUNT 6.6 X10^3/uL (3.6-10.0)
[2019-06-27 05:57] LABS: ALANINE AMINOTRANSFERASE 18 Units/L (12-78); ALBUMIN 2.7 g/dL (3.4-5.0); ALKALINE PHOSPHATASE 47 Units/L (46-116); ASPARTATE AMINO TRANSFERASE 15 Units/L (15-37); BLOOD UREA NITROGEN 29 mg/dL (7-18); CARBON DIOXIDE 31.9 mmol/L (21-32); CHLORIDE 100 mmol/L (98-107); COR NA(FOR HYPERGLY) 138 mmol/L (136-145); CREATININE 0.82 mg/dL (0.55-1.02); SODIUM 137 mmol/L (136-145); TOTAL PROTEIN 7.2 g/dL (6.4-8.2); eGFR NON BLACK RACES > 60 (>60)
[2019-06-27] MEDS: HEPARIN SODIUM INJ 5000 UNITS SC SCH ×3 (06:29→21:11)
[2019-06-27] MEDS: GLUCOTROL PO SCH ×2 (06:31→17:25)
[2019-06-27] MEDS: VSL#3 PO SCH (08:53)
[2019-06-27] MEDS: JANUVIA PO SCH (08:54)
[2019-06-27] MEDS: PROTONIX TAB 40 MG PO SCH (08:54)
[2019-06-27] MEDS: TAB-A-VITE PO SCH (08:54)
[2019-06-27] MEDS: NORCO 5/325 MG TAB PO PRN ×2 (08:54→22:05)
[2019-06-27] MEDS: HumuLIN R SC PRN ×2 (12:34→22:05)
[2019-06-27] MEDS: PREMARIN VAG VG SCH (21:09)
[2019-06-27] MEDS: SNACK - Diabetic Appropriate PO SCH (21:09)
[2019-06-28] MEDS: HEPARIN SODIUM INJ 5000 UNITS SC SCH (05:34)
[2019-06-28] MEDS: GLUCOTROL PO SCH (06:34)
[2019-06-28 08:16] VITALS: BP 140/65
[2019-06-28] MEDS: PROTONIX TAB 40 MG PO SCH (09:41)
[2019-06-28] MEDS: TAB-A-VITE PO SCH (09:41)
[2019-06-28] MEDS: JANUVIA PO SCH (09:41)
[2019-06-28] MEDS: VSL#3 PO SCH (09:42)
[2019-06-28] MEDS: HumuLIN R SC PRN (12:11)
[2019-06-28] MEDS: NORCO 5/325 MG TAB PO PRN (12:12)
== END 2019-06-28 14:45 | disposition home health service (06) | DRG 536 ==
LOC: MED/SURG 15:35
PROVIDERS: ADMIT Internal Medicine; ATTEND Internal Medicine
DX: M25.552 Pain in left hip; W01.0XXA Fall on same level from slipping, tripping and stumbling without subsequent striking against object, initial encounter; S72.012A Unspecified intracapsular fracture of left femur, initial encounter for closed fracture; Z47.1 Aftercare following joint replacement surgery; R26.89 Other abnormalities of gait and mobility; N81.89 Other female genital prolapse; E78.2 Mixed hyperlipidemia; Y92.9 Unspecified place or not applicable; E11.65 Type 2 diabetes mellitus with hyperglycemia; K21.9 Gastro-esophageal reflux disease without esophagitis; I10 Essential (primary) hypertension; Z96.642 Presence of left artificial hip joint
CPT/HCPCS: 36415; 80053; 85025; 85730; 97110; 97112; 97116; 97162; 97166; 97530; 97535; J1644; J1815

== ENCOUNTER 2020-09-14 17:35 | Inpatient (IN) ==
[2020-09-14] MEDS: LEVAQUIN PREMIX IV 500 MG 500 MG/100 ML BAG IV SCH (19:15)
[2020-09-14 19:34] LABS: BASOPHILS # (AUTO) 0.1 X10^3/uL (0.0-0.1); BASOPHILS % (AUTO) 0.5 % (0.2-1.0); EOSINOPHILS # (AUTO) 0.1 x10^3/uL (0.0-0.2); EOSINOPHILS % (AUTO) 1.1 % (0.9-2.9); HEMATOCRIT 29.4 % (36.0-47.0); HEMOGLOBIN 9.7 g/dL (12.0-16.0); LYMPHOCYTES # (AUTO) 2.5 X10^3/uL (1.3-2.9); LYMPHOCYTES % (AUTO) 22.7 % (21.0-51.0); MEAN CORPUSCULAR HEMOGLOBIN 29.5 pg (27.0-34.0); MEAN CORPUSCULAR HGB CONC 33.1 g/dL (33.0-35.0); MEAN CORPUSCULAR VOLUME 89.3 fL (80.0-100.0); MEAN PLATELET VOLUME 6.6 fL (7.4-11.0); MONOCYTES % (AUTO) 8.6 % (0.0-13.0); NEUTROPHILS # (AUTO) 7.5 x10^3/uL (2.2-4.8); NEUTROPHILS % (AUTO) 67.1 % (42.0-75.0); PLATELET COUNT 454 X10^3/uL (150.0-450.0); RED BLOOD COUNT 3.29 X10^6/uL (3.5-5.4); RED CELL DISTRIBUTION WIDTH 14.2 % (11.6-16.5); WHITE BLOOD COUNT 11.2 X10^3/uL (3.6-10.0)
[2020-09-14] MEDS: NS 1000 ML 1,000 ML IV SCH (19:59)
[2020-09-14] MEDS ORDERED: VANCOMYCIN HCL 1 G in D5W 250 ML IV 250 ML IV ONE (20:00)
[2020-09-14 20:17] LABS: ALBUMIN 2.4 g/dL (3.4-5.0); CALCIUM 9.2 mg/dL (8.5-10.1); CARBON DIOXIDE 31.9 mmol/L (21-32); COR CA(FOR HYPOALB) 10.5 mg/dL (8.5-10.1); CREATININE 1.24 mg/dL (0.55-1.02); TOTAL PROTEIN 7.6 g/dL (6.4-8.2)
[2020-09-15 02:30] VITALS: BMI 23.0
[2020-09-15 06:06] LABS: BASOPHILS % (AUTO) 0.3 % (0.2-1.0); EOSINOPHILS # (AUTO) 0.1 x10^3/uL (0.0-0.2); EOSINOPHILS % (AUTO) 0.9 % (0.9-2.9); HEMATOCRIT 28.8 % (36.0-47.0); HEMOGLOBIN 9.8 g/dL (12.0-16.0); LYMPHOCYTES # (AUTO) 2.6 X10^3/uL (1.3-2.9); LYMPHOCYTES % (AUTO) 25.4 % (21.0-51.0); MEAN CORPUSCULAR HEMOGLOBIN 30.2 pg (27.0-34.0); MEAN CORPUSCULAR VOLUME 88.9 fL (80.0-100.0); MEAN PLATELET VOLUME 6.7 fL (7.4-11.0); MONOCYTES % (AUTO) 10.1 % (0.0-13.0); NEUTROPHILS # (AUTO) 6.6 x10^3/uL (2.2-4.8); NEUTROPHILS % (AUTO) 63.3 % (42.0-75.0); PLATELET COUNT 463 X10^3/uL (150.0-450.0); RED BLOOD COUNT 3.24 X10^6/uL (3.5-5.4); RED CELL DISTRIBUTION WIDTH 13.9 % (11.6-16.5); WHITE BLOOD COUNT 10.3 X10^3/uL (3.6-10.0)
[2020-09-15 06:16] LABS: ALANINE AMINOTRANSFERASE 14 Units/L (12-78); ALBUMIN 2.4 g/dL (3.4-5.0); ALKALINE PHOSPHATASE 79 Units/L (46-116); ASPARTATE AMINO TRANSFERASE 10 Units/L (15-37); BLOOD UREA NITROGEN 28 mg/dL (7-18); CALCIUM 9.1 mg/dL (8.5-10.1); CARBON DIOXIDE 32.6 mmol/L (21-32); CHLORIDE 99 mmol/L (98-107); COR CA(FOR HYPOALB) 10.4 mg/dL (8.5-10.1); COR NA(FOR HYPERGLY) 140 mmol/L (136-145); CREATININE 0.85 mg/dL (0.55-1.02); SODIUM 137 mmol/L (136-145); TOTAL PROTEIN 7.5 g/dL (6.4-8.2); eGFR NON BLACK RACES > 60 (>60)
--- NOTE | 2020-09-15 08:36 | DR.H&P ---
H&P - History & Physical for Day of: H&P Date: 09/14/20 - Chief Complaint Chief Complaint: LEFT HIP ABSCESS - History of Present Illness History of Present Illness: IS A 89 YEAR OLD PATIENT OF OURS WHO PRESENTED TO THE OFFICE WITH REPORTS OF AN ABSCESS TO THE LEFT HIP. SHE REPORTS THAT IT STARTD OFF A SMALL AREA AND HAS PROGRESSIVELY GOTTEN BIGGER. PATIENT FIRST NOTICED THE AREA ON 09/10/20. THERE IS A FLUCTUANT INTACT BLISTER TO THE LEFT HIP THAT IS RED, HOT, AND TENDER TO TOUCH. THERE IS NO ACTIVE DRAINAGE AT THIS TIME. PATIENT IS NON-AMBULATORY AND LIVES AT HOME WITH HER DISABLED SON. SHE REQUIRES TOTAL ASSISTANCE FOR BATHING, TOILETING, AND AMBULATION. PATIENT REPORTS THAT HER AND HER SON HAVE VISITING NURSES THAT COME IN DURING THE DAY AND A SITTER THAT STAYS AT NIGHT. PMH INCLUDES HTN, HYPERLIPIDEMIA, GERD, ARTHRI TIS, GUILLIAN-BARRE, DM II, ANEMIA, SKIN CANCER, LEFT HIP REPAIR. SHE WAS ADMITTED TO THE HOSPITAL FOR IV ANTIBIOTICS, SURGICAL CONSULT FOR I&D, AND WOUND CARE. ON ARRIVAL TO THE HOSPITAL, VITALS WERE 99.0-81-20-95%-138/64. LABS WERE OBTAINED. ABNORMAL LAB VALUES INCLUDE THE FOLLOWIN.2, RBC 3.29, HGB 9.7, HCT 29.4, SODIUM 134, CHLORIDE 97, BUN 36, CREATININE 1.24, GLUCOSE 338, AST 11, TOTAL BILI 0.10, ALBUMIN 2.4, GLOBULIN 5.2. COVID-19 NEGATIVE. WOUND AND BLOOD CULTURES WERE SET UP. SHE WAS STARTED ON NORMAL SALINE AT 50 ML/HR, LEVAQUIN 500MG IV DAILY, VANCOMYCIN 1G IV Q48H, HUMULIN R SLIDING SCALE, OTBS ACHS, JANUVIA 100MG PO BID, GLIPIZIDE 10MG PO BID, AND NORCO 5/325MG PO Q6H PRN PAIN. WE WILL CONSULT WITH GENERAL SURGERY FOR POSSIBLE I&D. OTHERWISE, WE PLAN TO FOLLOW UP WITH AM LABS AND CONTINUE TO MONITOR. TIME SPENT ON CLINICAL ASSESSMENT, REVIEWING LABS AND IMAGING, DECISION MAKING, AND DOCUMENTATION GREATER THAN 75 MINUTES. - Past Medical History Past Medical History: Anemia, Arthritis, Diabetes, Dyslipidemia, GERD, Hypertension Additional Medical History: GUILLIAN-BARRE, SKIN CANCER - Past Surgical History Surgical History: Ortho Surgery, Other Additional Surgical History: LEFT HIP FX REPAIR - Family History Family Medical History: Hypertension - Social History Alcohol Use: None Drug Use: None - Medications Home Medications: Iodine and Iodide Containing Produc Allergy (Verified 06/15/20 10:05) CONTINUE taking the following medications glipizide 10 mg PO BID 09/15/20 [History] sitagliptin [Januvia] 100 mg PO DAILY 09/15/20 [History] - Review of Systems Constitutional: See HPI, Weakness Eyes: No Symptoms Reported ENT: No Symptoms Reported Respiratory: No Symptoms Reported Cardiovascular: No Symptoms Reported Gastrointestinal: No Symptoms Reported Genitourinary: No Symptoms Reported Musculoskeletal: See HPI Skin: See HPI, Wound Neurological: See HPI, Weakness - Physical Exam Vital Signs: Temperature 97.4 F Pulse Rate [Left Brachial] 78 Respiratory Rate 20 Blood Pressure [Right Arm] 140/65 Blood Pressure [Left Arm] 126/60 Blood Pressure [Right Arm] 142/64 Blood Pressure 105/66 O2 Sat by Pulse Oximetry 93 Oriented: Normal Eyes: Normal Ear: Normal Nose: Normal Throat: Normal Respiratory: Clear Throughout Cardiovascular: Normal : Normal Auscultation: Bowel Sounds: Normal Palpation: Normal Tenderness: Normal Skin: Red, Tender, Hot, Wound (ABSCESS TO LEFT HIP ) Musculoskeletal: Left, Hip, Tender, Instability Psychiatric: Normal Mood Description: Calm Affect: Normal Speech Pattern: Clear - Assessment/Plan (1) Abscess of left hip Status: Acute Plan: ADMIT, NORMAL SALINE AT 50 ML/HR, LEVAQUIN 500MG IV DAILY, VANCOMYCIN 1G IV Q48H, HUMULIN R SLIDING SCALE, OTBS ACHS, JANUVIA 100MG PO BID, GLIPIZIDE 10MG PO BID, AND NORCO 5/325MG PO Q6H PRN PAIN. WE WILL CONSULT WITH GENERAL SURGERY FOR POSSIBLE I&D. (2) Hypertension Qualifiers: Hypertension type: essential hypertension Status: Chronic (3) Diabetes mellitus Qualifiers: Diabetes mellitus type: type 2 Diabetes mellitus intermediate teacher insulin use: unspecified intermediate teacher insulin use status Diabetes mellitus complication status: with hyperglycemia Qualified Code(s): E11.65 - Type 2 diabetes mellitus with hyperglycemia Status: Chronic (4) Anemia Qualifiers: Anemia type: unspecified type Qualified Code(s): D64.9 - Anemia, unspecified Status: Chronic (5) Hyperlipidemia Qualifiers: Hyperlipidemia type: mixed hyperlipidemia Qualified Code(s): E78.2 - Mixed hyperlipidemia Status: Chronic - Allergies Allergies/Adverse Reactions: Allergies Allergy/AdvReac Type Severity Reaction Status Date / Time Iodine and Iodide Containing Allergy Verified 06/15/20 10:05 Produc
[2020-09-15] MEDS ORDERED: NORCO 5/325 MG TAB PO PRN (08:39)
[2020-09-15] MEDS: LEVAQUIN PREMIX IV 500 MG 500 MG/100 ML BAG IV SCH (08:53)
[2020-09-15] MEDS: JANUVIA PO SCH (09:41)
[2020-09-15] MEDS: GLUCOTROL PO SCH ×2 (09:41→20:38)
--- NOTE | 2020-09-15 09:53 | PCM.PROG ---
Progress Note - Progress Note for Day of Date of Exam: 09/15/20 - Subjective Subjective: IS BEING TREATED FOR A LEFT HIP ABSCESS. PATIENT IS NON- AMBULATORY AND REQUIRES ASSISTANCE FOR ADLs. TODAY, SHE IS ALERT AND ORIENTED, LYING IN BED ON MORNING ROUNDS. SHE REPORTS TENDERNESS TO THE LEFT HIP. ON EXAMINATION, HEART IS REGULAR IN RATE AND RHYTHM. BILATERAL LUNGS ARE CLEAR TO AUSCULTATION. ABDOMEN IS FLAT, SOFT, AND NON-TENDER WITH NORMAL BOWEL SOUNDS NOTED IN ALL QUADRANTS. HER VITALS THIS MORNING ARE: 97.4-78-20-93%-126/60. SHE HAS BEEN AFEBRILE SINCE ADMISSION. LABS WERE OBTAINED THIS MORNING. ABNORMAL LAB VALUES INCLUDE THE FOLLOWING: WBC 10.3, RBC 3.24, HGB 9.8, HCT 28.8, PLT COUNT 463, CARBON DIOXIDE 32.6, BUN 28, GLUCOSE 221, AST 10, ALBUMIN 2.4, GLOBULIN 5.1. BLOOD AND WOUND CULTURES ARE PENDING. WE HAVE CONSULTED GENERAL SURGERY AND THEY WILL TAKE HER DOWN TO THE OR FOR AN I&D THIS MORNING. WE ARE IN AGREEMENT WITH PLANS. SHE IS CURRENTLY RECEIVING NORMAL SALINE AT 50 ML/HR, LEVAQUIN 500MG IV DAILY, VANCOMYCIN 1G IV Q48H, HUMULIN R SLIDING SCALE, OTBS ACHS, JANUVIA 100MG PO BID, GLIPIZIDE 10MG PO BID, AND NORCO 5/325MG PO Q6H PRN PAIN. WE WILL CONTINUE WITH CURRENT PLAN OF CARE TODAY. OTHERWISE, WE PLAN TO FOLLOW UP WITH AM LABS AND CONTINUE TO MONITOR. TIME SPENT ON CLINICAL ASSESSMENT, REVIEWING LABS AND IMAGING, DECISION MAKING, AND DOCUMENTATION GREATER THAN 45 MINUTES. - Past Medical Family Social History Past Med/Fam/Surg Hx: No changes since H&P Allergies: Allergies Iodine and Iodide Containing Produc Allergy (Verified 06/15/20 10:05) - Review of Systems ROS: No change since H&P - Vital Signs and I&O's Vital Signs: Temperature 97.4 F Pulse Rate [Left Brachial] 78 Respiratory Rate 20 Blood Pressure [Right Arm] 140/65 Blood Pressure [Left Arm] 126/60 Blood Pressure [Right Arm] 142/64 Blood Pressure 105/66 O2 Sat by Pulse Oximetry 93 Intake and Output: Intake & Output 09/12/20 09/13/20 09/14/20 09/15/20 11:59 11:59 11:59 11:59 Intake Total 582 / 582 Output Total 2200 / 2200 Balance -1618 / -1618 - Physical Exam Oriented: Normal Eyes: Normal Ear: Normal Nose: Normal Throat: Normal Respiratory: Normal Cardiovascular: Normal : Normal Auscultation: Bowel Sounds: Normal Palpation: Normal Tenderness: Normal Skin: Red, Tender, Hot, Wound (ABSCESS TO LEFT HIP ) Musculoskeletal: Left, Hip, Tender, Instability Psychiatric: Normal Mood Description: Calm Affect: Normal Speech Pattern: Clear - Laboratory and Diagnostics Result Diagrams: 09/15/20 05:20 09/15/20 05:20 Labs: 09/14/20 19:55 Hip - Left Wound Gram Stain - Final Laboratory WBC 10.3 X10^3/uL (3.6-10.0) H 09/15/20 05:20 RBC 3.24 X10^6/uL (3.5-5.4) L 09/15/20 05:20 Hgb 9.8 g/dL (12.0-16.0) L 09/15/20 05:20 Hct 28.8 % (36.0-47.0) L 09/15/20 05:20 MCV 88.9 fL (80.0-100.0) 09/15/20 05:20 MCH 30.2 pg (27.0-34.0) 09/15/20 05:20 MCHC 34.0 g/dL (33.0-35.0) 09/15/20 05:20 RDW 13.9 % (11.6-16.5) 09/15/20 05:20 Plt Count 463 X10^3/uL (150.0-450.0) H 09/15/20 05:20 MPV 6.7 fL (7.4-11.0) L 09/15/20 05:20 Neut % (Auto) 63.3 % (42.0-75.0) 09/15/20 05:20 Lymph % (Auto) 25.4 % (21.0-51.0) 09/15/20 05:20 [place] % (Auto) 10.1 % (0.0-13.0) 09/15/20 05:20 Eos % (Auto) 0.9 % (0.9-2.9) 09/15/20 05:20 Baso % (Auto) 0.3 % (0.2-1.0) 09/15/20 05:20 Neut # (Auto) 6.6 x10^3/uL (2.2-4.8) H 09/15/20 05:20 Lymph # (Auto) 2.6 X10^3/uL (1.3-2.9) 09/15/20 05:20 [place] # (Auto) 1.0 x10^3/uL (0.3-0.8) H 09/15/20 05:20 Eos # (Auto) 0.1 x10^3/uL (0.0-0.2) 09/15/20 05:20 Baso # (Auto) 0.0 X10^3/uL (0.0-0.1) 09/15/20 05:20 Absolute Nucleated RBC 0.0 /100WBC 09/15/20 05:20 Sodium 137 mmol/L (136-145) 09/15/20 05:20 Corrected Sodium 140 mmol/L (136-145) 09/15/20 05:20 Potassium 3.8 mmol/L (3.5-5.1) 09/15/20 05:20 Chloride 99 mmol/L (98-107) 09/15/20 05:20 Carbon Dioxide 32.6 mmol/L (21-32) H 09/15/20 05:20 BUN 28 mg/dL (7-18) H 09/15/20 05:20 Creatinine 0.85 mg/dL (0.55-1.02) 09/15/20 05:20 Est GFR (MDRD) Af Amer > 60 (>60) 09/15/20 05:20 Est GFR (MDRD) Non-Af > 60 (>60) 09/15/20 05:20 Glucose 221 mg/dL (65-99) H 09/15/20 05:20 POC Glucose (mg/dL) 200 mg/dL (65-99) H 09/15/20 06:22 Calcium 9.1 mg/dL (8.5-10.1) 09/15/20 05:20 Corrected Calcium 10.4 mg/dL (8.5-10.1) H 09/15/20 05:20 Total Bilirubin 0.20 mg/dL (0.2-1.0) 09/15/20 05:20 AST 10 Units/L (15-37) L 09/15/20 05:20 ALT 14 Units/L (12-78) 09/15/20 05:20 Alkaline Phosphatase 79 Units/L (46-116) 09/15/20 05:20 Total Protein 7.5 g/dL (6.4-8.2) 09/15/20 05:20 Albumin 2.4 g/dL (3.4-5.0) L 09/15/20 05:20 Globulin 5.1 g/dL (2.5-4.5) H 09/15/20 05:20 Albumin/Globulin Ratio 0.5 Ratio (1.1-2.1) L 09/15/20 05:20 SARS CoV-2 RNA Rapid VANESSA Negative (NEGATIVE) 09/14/20 17:58 - Plan (1) Abscess of left hip Status: Acute Plan: NORMAL SALINE AT 50 ML/HR, LEVAQUIN 500MG IV DAILY, VANCOMYCIN 1G IV Q48H, HUMULIN R SLIDING SCALE, OTBS ACHS, JANUVIA 100MG PO BID, GLIPIZIDE 10MG PO BID, AND NORCO 5/325MG PO Q6H PRN PAIN. I&D TODAY. (2) Hypertension Status: Chronic Qualifiers: Hypertension type: essential hypertension (3) Diabetes mellitus Status: Chronic Qualifiers: Diabetes mellitus type: type 2 Diabetes mellitus group home insulin use: unspecified group home insulin use status Diabetes mellitus complication status : with hyperglycemia Qualified Code(s): E11.65 - Type 2 diabetes mellitus with hyperglycemia (4) Anemia Status: Chronic Qualifiers: Anemia type: unspecified type Qualified Code(s): D64.9 - Anemia, unspecified (5) Hyperlipidemia Status: Chronic Qualifiers: Hyperlipidemia type: mixed hyperlipidemia Qualified Code(s): E78.2 - Mixed hyperlipidemia
--- NOTE | 2020-09-15 09:54 | RAD ---
HISTORYPreop for abscessSTUDYCHEST x-ray, 1 VIEWCOMPARISONX-ray 06/10/2020FINDINGSCalcification is seen of the aortic arch. The heart is normal size. Mild lingular infiltrate is seen and there may be mild right upper lobe infiltrate. These could be pneumonia or atelectasis. No pneumothorax or pleural effusion is seen.IMPRESSIONNew mild infiltrates in the left lingula and right upper lobe are suspected. These may be atelectasis or pneumonia.Electronically signed by: Kiran Gaytan (September 15, 2020 09:52:50)
[2020-09-15] MEDS ORDERED: FENTANYL INJ 100 mcg ONE (11:03)
[2020-09-15] MEDS ORDERED: XYLOCAINE 1 % (PLAIN) ONE ×2 (11:55→12:07)
[2020-09-15] MEDS ORDERED: DIPRIVAN VIAL ONE (11:55)
[2020-09-15] MEDS ORDERED: VERSED ONE (11:55)
[2020-09-15] MEDS ORDERED: POLYMYXIN B SULFATE ONE (12:07)
[2020-09-15] MEDS: VANCOMYCIN IV *PREMIX 750 mg/150 ML BAG 750 MG/150 ML PIGGYBACK IV SCH ×2 (12:38→20:55)
[2020-09-15] MEDS: NS 1000 ML 1,000 ML IV SCH ×2 (17:16→20:59)
[2020-09-15] MEDS ORDERED: SNACK - Diabetic Appropriate PO SCH (20:00)
[2020-09-15] MEDS: SNACK - Diabetic Appropriate PO SCH (20:36)
[2020-09-16 06:43] LABS: BASOPHILS % (AUTO) 0.5 % (0.2-1.0); EOSINOPHILS # (AUTO) 0.1 x10^3/uL (0.0-0.2); EOSINOPHILS % (AUTO) 1.3 % (0.9-2.9); HEMATOCRIT 28.1 % (36.0-47.0); HEMOGLOBIN 9.5 g/dL (12.0-16.0); LYMPHOCYTES # (AUTO) 2.6 X10^3/uL (1.3-2.9); LYMPHOCYTES % (AUTO) 29.5 % (21.0-51.0); MEAN CORPUSCULAR HEMOGLOBIN 30.1 pg (27.0-34.0); MEAN CORPUSCULAR HGB CONC 33.8 g/dL (33.0-35.0); MEAN PLATELET VOLUME 6.6 fL (7.4-11.0); MONOCYTES # (AUTO) 0.8 x10^3/uL (0.3-0.8); MONOCYTES % (AUTO) 8.8 % (0.0-13.0); NEUTROPHILS # (AUTO) 5.4 x10^3/uL (2.2-4.8); NEUTROPHILS % (AUTO) 59.9 % (42.0-75.0); PLATELET COUNT 445 X10^3/uL (150.0-450.0); RED BLOOD COUNT 3.16 X10^6/uL (3.5-5.4); RED CELL DISTRIBUTION WIDTH 14.1 % (11.6-16.5)
[2020-09-16 07:12] LABS: ALANINE AMINOTRANSFERASE 13 Units/L (12-78); ALBUMIN 2.3 g/dL (3.4-5.0); ALKALINE PHOSPHATASE 76 Units/L (46-116); ASPARTATE AMINO TRANSFERASE 11 Units/L (15-37); BLOOD UREA NITROGEN 24 mg/dL (7-18); CARBON DIOXIDE 30.2 mmol/L (21-32); CHLORIDE 103 mmol/L (98-107); COR CA(FOR HYPOALB) 10.4 mg/dL (8.5-10.1); CREATININE 0.89 mg/dL (0.55-1.02); SODIUM 139 mmol/L (136-145); TOTAL PROTEIN 7.2 g/dL (6.4-8.2); eGFR NON BLACK RACES > 60 (>60)
[2020-09-16] MEDS ORDERED: PHARMACY COMMENT IV ONE (08:30)
[2020-09-16] MEDS: JANUVIA PO SCH (09:10)
[2020-09-16] MEDS: GLUCOTROL PO SCH ×2 (09:10→20:32)
[2020-09-16] MEDS: LEVAQUIN PREMIX IV 500 MG 500 MG/100 ML BAG IV SCH (09:22)
--- NOTE | 2020-09-16 09:32 | PCM.PROG ---
Progress Note - Progress Note for Day of Date of Exam: 09/16/20 - Subjective Subjective: IS BEING TREATED FOR A LEFT HIP ABSCESS. SHE IS DAY 1 STATUS POST I&D OF ABSCESS. REPORTED THAT NECROTIC TISSUE WAS REMOVED. HE ALSO REPORTED THAT PURULENT MATERIAL REACHED DOWN INTO THE CAVITY AND AROUND THE SURGICAL SITE OF HER LEFT HIP SURGICAL HARDWARE. PATIENT IS NON- AMBULATORY AND REQUIRES ASSISTANCE FOR ADLs. TODAY, SHE IS ALERT AND ORIENTED, LYING IN BED ON MORNING ROUNDS. SHE REPORTS TENDERNESS TO THE LEFT HIP. ON EXAMINATION, HEART IS REGULAR IN RATE AND RHYTHM. BILATERAL LUNGS ARE CLEAR TO AUSCULTATION. ABDOMEN IS FLAT, SOFT, AND NON-TENDER WITH NORMAL BOWEL SOUNDS NOTED IN ALL QUADRANTS. SURGICAL DRESSING NOTED TO THE LEFT HIP WITH REDNESS SURROUNDING SITE. HER VITALS THIS MORNING ARE: 98.3-85-20-94%-126/60. SHE HAS BEEN AFEBRILE SINCE ADMISSION. LABS WERE OBTAINED THIS MORNING. ABNORMAL LAB VALUES INCLUDE THE FOLLOWING: RBC 3.16, HGB 9.5, HCT 28.1, POTASSIUM 3.3, BUN 24, TOTAL BILI 0.10, AST 11, ALBUMIN 2.3, GLOBULIN 4.9. BLOOD AND WOUND CULTURES ARE PENDING. SHE IS CURRENTLY RECEIVING NORMAL SALINE AT 50 ML/HR, LEVAQUIN 500MG IV DAILY, VANCOMYCIN 750MG IV Q12H, HUMULIN R SLIDING SCALE, OTBS ACHS, JANUVIA 100MG PO BID, GLIPIZIDE 10MG PO BID, AND NORCO 5/325MG PO Q6H PRN PAIN. WE WILL CONTINUE WITH CURRENT PLAN OF CARE TODAY. OTHERWISE, WE PLAN TO FOLLOW UP WITH AM LABS AND CONTINUE TO MONITOR. TIME SPENT ON CLINICAL ASSESSMENT, REVIEWING LABS AND IMAGING, DECISION MAKING, AND DOCUMENTATION GREATER THAN 45 MINUTES. - Past Medical Family Social History Past Med/Fam/Surg Hx: No changes since H&P Allergies: Allergies Iodine and Iodide Containing Produc Allergy (Verified 06/15/20 10:05) - Review of Systems ROS: No change since H&P - Vital Signs and I&O's Vital Signs: Temperature 98.3 F Pulse Rate [Left Brachial] 85 Respiratory Rate 20 Blood Pressure [Right Arm] 140/65 Blood Pressure [Left Arm] 126/60 Blood Pressure [Right Arm] 142/64 Blood Pressure 105/66 O2 Sat by Pulse Oximetry 94 Intake and Output: Intake & Output 05/23/21 05/24/21 05/25/21 05/26/21 11:59 11:59 11:59 11:59 Intake Total 582 / 582 3263 / 3263 Output Total 2200 / 2200 100 / 100 Balance -1618 / -1618 3163 / 3163 - Physical Exam Oriented: Normal Eyes: Normal Ear: Normal Nose: Normal Throat: Normal Respiratory: Normal Cardiovascular: Normal : Normal Auscultation: Bowel Sounds: Normal Tenderness: Normal Skin: Red, Tender, Hot, Wound (ABSCESS TO LEFT HIP ) Musculoskeletal: Left, Hip, Tender, Instability Psychiatric: Normal Mood Description: Calm Affect: Normal Speech Pattern: Clear, Appropriate - Laboratory and Diagnostics Result Diagrams: 09/16/20 05:57 09/16/20 05:57 Labs: 09/15/20 12:17 Hip - Left Wound Gram Stain - Final 09/14/20 19:55 Hip - Left Wound Gram Stain - Final Laboratory WBC 9.0 X10^3/uL (3.6-10.0) 09/16/20 05:57 RBC 3.16 X10^6/uL (3.5-5.4) L 09/16/20 05:57 Hgb 9.5 g/dL (12.0-16.0) L 09/16/20 05:57 Hct 28.1 % (36.0-47.0) L 09/16/20 05:57 MCV 89.0 fL (80.0-100.0) 09/16/20 05:57 MCH 30.1 pg (27.0-34.0) 09/16/20 05:57 MCHC 33.8 g/dL (33.0-35.0) 09/16/20 05:57 RDW 14.1 % (11.6-16.5) 09/16/20 05:57 Plt Count 445 X10^3/uL (150.0-450.0) 09/16/20 05:57 MPV 6.6 fL (7.4-11.0) L 09/16/20 05:57 Neut % (Auto) 59.9 % (42.0-75.0) 09/16/20 05:57 Lymph % (Auto) 29.5 % (21.0-51.0) 09/16/20 05:57 [place] % (Auto) 8.8 % (0.0-13.0) 09/16/20 05:57 Eos % (Auto) 1.3 % (0.9-2.9) 09/16/20 05:57 Baso % (Auto) 0.5 % (0.2-1.0) 09/16/20 05:57 Neut # (Auto) 5.4 x10^3/uL (2.2-4.8) H 09/16/20 05:57 Lymph # (Auto) 2.6 X10^3/uL (1.3-2.9) 09/16/20 05:57 [place] # (Auto) 0.8 x10^3/uL (0.3-0.8) 09/16/20 05:57 Eos # (Auto) 0.1 x10^3/uL (0.0-0.2) 09/16/20 05:57 Baso # (Auto) 0.0 X10^3/uL (0.0-0.1) 09/16/20 05:57 Absolute Nucleated RBC 0.0 /100WBC 09/16/20 05:57 Sodium 139 mmol/L (136-145) 09/16/20 05:57 Corrected Sodium TNP 09/16/20 05:57 Potassium 3.3 mmol/L (3.5-5.1) L 09/16/20 05:57 Chloride 103 mmol/L (98-107) 09/16/20 05:57 Carbon Dioxide 30.2 mmol/L (21-32) 09/16/20 05:57 BUN 24 mg/dL (7-18) H 09/16/20 05:57 Creatinine 0.89 mg/dL (0.55-1.02) 09/16/20 05:57 Est GFR (MDRD) Af Amer > 60 (>60) 09/16/20 05:57 Est GFR (MDRD) Non-Af > 60 (>60) 09/16/20 05:57 Glucose 82 mg/dL (65-99) 09/16/20 05:57 POC Glucose (mg/dL) 118 mg/dL (65-99) H 09/16/20 05:56 Calcium 9.0 mg/dL (8.5-10.1) 09/16/20 05:57 Corrected Calcium 10.4 mg/dL (8.5-10.1) H 09/16/20 05:57 Total Bilirubin 0.10 mg/dL (0.2-1.0) L 09/16/20 05:57 AST 11 Units/L (15-37) L 09/16/20 05:57 ALT 13 Units/L (12-78) 09/16/20 05:57 Alkaline Phosphatase 76 Units/L (46-116) 09/16/20 05:57 Total Protein 7.2 g/dL (6.4-8.2) 09/16/20 05:57 Albumin 2.3 g/dL (3.4-5.0) L 09/16/20 05:57 Globulin 4.9 g/dL (2.5-4.5) H 09/16/20 05:57 Albumin/Globulin Ratio 0.5 Ratio (1.1-2.1) L 09/16/20 05:57 SARS CoV-2 RNA Rapid VANESSA Negative (NEGATIVE) 09/14/20 17:58 - Plan (1) Abscess of left hip Status: Acute Plan: NORMAL SALINE AT 50 ML/HR, LEVAQUIN 500MG IV DAILY, VANCOMYCIN 750MG IV Q12H, HUMULIN R SLIDING SCALE, OTBS ACHS, JANUVIA 100MG PO BID, GLIPIZIDE 10MG PO BID, AND NORCO 5/325MG PO Q6H PRN PAIN. I&D TODAY. (2) Hypertension Status: Chronic Qualifiers: Hypertension type: essential hypertension (3) Diabetes mellitus Status: Chronic Qualifiers: Diabetes mellitus type: type 2 Diabetes mellitus manager intermediate insulin use: unspecified manager intermediate insulin use status Diabetes mellitus complication status: with hyperglycemia Qualified Code(s): E11.65 - Type 2 diabetes mellitus with hyperglycemia (4) Anemia Status: Chronic Qualifiers: Anemia type: unspecified type Qualified Code(s): D64.9 - Anemia, unspecified (5) Hyperlipidemia Status: Chronic Qualifiers: Hyperlipidemia type: mixed hyperlipidemia Qualified Code(s): E78.2 - Mixed hyperlipidemia
[2020-09-16] MEDS: VANCOMYCIN IV *PREMIX 750 mg/150 ML BAG 750 MG/150 ML PIGGYBACK IV SCH ×2 (10:30→21:40)
[2020-09-16 20:19] LABS: CREATININE 0.95 mg/dL (0.55-1.02); VANCOMYCIN,TROUGH 12.4 ug/mL (15-20)
[2020-09-16] MEDS ORDERED: PHARMACY COMMENT IV NR (20:30)
[2020-09-16] MEDS: SNACK - Diabetic Appropriate PO SCH (20:37)
[2020-09-16] MEDS: HumuLIN R SUBCUT PRN (20:47)
[2020-09-16] MEDS ORDERED: VANCOMYCIN 1 GRAM PREMIX (ADDVANTAGE) 250 ML IV SCH (21:00)
[2020-09-16] MEDS ORDERED: VANCOMYCIN HCL 1 G in D5W 250 ML IV 250 ML IV SCH (21:00)
[2020-09-16] MEDS: NS 1000 ML 1,000 ML IV SCH (23:05)
[2020-09-17 06:07] LABS: BASOPHILS % (AUTO) 0.5 % (0.2-1.0); EOSINOPHILS # (AUTO) 0.2 x10^3/uL (0.0-0.2); EOSINOPHILS % (AUTO) 1.7 % (0.9-2.9); HEMATOCRIT 27.3 % (36.0-47.0); HEMOGLOBIN 9.3 g/dL (12.0-16.0); LYMPHOCYTES % (AUTO) 33.4 % (21.0-51.0); MEAN CORPUSCULAR HEMOGLOBIN 30.2 pg (27.0-34.0); MEAN CORPUSCULAR VOLUME 88.8 fL (80.0-100.0); MEAN PLATELET VOLUME 6.7 fL (7.4-11.0); MONOCYTES # (AUTO) 0.8 x10^3/uL (0.3-0.8); MONOCYTES % (AUTO) 9.2 % (0.0-13.0); NEUTROPHILS # (AUTO) 4.9 x10^3/uL (2.2-4.8); NEUTROPHILS % (AUTO) 55.2 % (42.0-75.0); PLATELET COUNT 416 X10^3/uL (150.0-450.0); RED BLOOD COUNT 3.07 X10^6/uL (3.5-5.4); RED CELL DISTRIBUTION WIDTH 14.6 % (11.6-16.5); WHITE BLOOD COUNT 8.9 X10^3/uL (3.6-10.0)
[2020-09-17 06:12] LABS: ALANINE AMINOTRANSFERASE 12 Units/L (12-78); ALBUMIN 2.2 g/dL (3.4-5.0); ALKALINE PHOSPHATASE 75 Units/L (46-116); ASPARTATE AMINO TRANSFERASE 11 Units/L (15-37); BLOOD UREA NITROGEN 20 mg/dL (7-18); CALCIUM 8.8 mg/dL (8.5-10.1); CARBON DIOXIDE 27.6 mmol/L (21-32); CHLORIDE 104 mmol/L (98-107); COR CA(FOR HYPOALB) 10.2 mg/dL (8.5-10.1); COR NA(FOR HYPERGLY) 140 mmol/L (136-145); CREATININE 0.81 mg/dL (0.55-1.02); SODIUM 138 mmol/L (136-145); eGFR NON BLACK RACES > 60 (>60)
[2020-09-17] MEDS: HumuLIN R SUBCUT PRN ×2 (06:19→21:50)
--- NOTE | 2020-09-17 08:40 | DR.PROGNOT ---
Hospital Progress Notes - Progress Note for Day of: Progress Note Date: 09/17/20 - Chief Complaint Chief Complaint: dreassaing was changed and repacked . much better with less erythema . still having moderate drainage . afebrile . - Past Medical Family Social History Past Med/Fam/Surg Hx: No changes since H&P Allergies: Allergies Iodine and Iodide Containing Produc Allergy (Verified 06/15/20 10:05) - Review Of Systems ROS: No change since H&P - Vital Signs Vital Signs: Temperature 98.3 F Pulse Rate [Left Brachial] 87 Respiratory Rate 18 Blood Pressure [Right Arm] 140/60 Blood Pressure [Left Arm] 129/61 Blood Pressure [Right Arm] 142/64 Blood Pressure 105/66 O2 Sat by Pulse Oximetry 96 - Physical Exam Oriented: Normal Eyes: Normal Ear: Normal Nose: Normal Throat: Normal Respiratory: Normal Cardiovascular: Normal : Normal GI:Auscultation: Normal GI:Palpation: Normal GI: Tenderness: Normal Skin: Red, Tender, Hot, Wound (less cellulitis with open wound ) Musculoskeletal: Left, Hip, Tender, Instability Psychiatric: Normal Mood Description: Calm Affect: Normal Speech Pattern: Clear, Appropriate - Laboratory and Diagnostics Result Diagrams: 09/17/20 05:21 09/17/20 05:21 Labs: 09/14/20 19:15 Blood Blood Culture - Final 09/14/20 19:05 Blood Blood Culture - Preliminary 09/15/20 12:17 Hip - Left Wound Gram Stain - Final 09/15/20 12:17 Hip - Left Wound Culture - Preliminary 09/14/20 19:55 Hip - Left Wound Gram Stain - Final 09/14/20 19:55 Hip - Left Wound Culture - Preliminary Laboratory WBC 8.9 X10^3/uL (3.6-10.0) 09/17/20 05:21 RBC 3.07 X10^6/uL (3.5-5.4) L 09/17/20 05: Hgb 9.3 g/dL (12.0-16.0) L 09/17/20 05:21 Hct 27.3 % (36.0-47.0) L 09/17/20 05:21 MCV 88.8 fL (80.0-100.0) 09/17/20 05:21 MCH 30.2 pg (27.0-34.0) 09/17/20 05:21 MCHC 34.0 g/dL (33.0-35.0) 09/17/20 05:21 RDW 14.6 % (11.6-16.5) 09/17/20 05:21 Plt Count 416 X10^3/uL (150.0-450.0) 09/17/20 05:21 MPV 6.7 fL (7.4-11.0) L 09/17/20 05:21 Neut % (Auto) 55.2 % (42.0-75.0) 09/17/20 05:21 Lymph % (Auto) 33.4 % (21.0-51.0) 09/17/20 05:21 [place] % (Auto) 9.2 % (0.0-13.0) 09/17/20 05:21 Eos % (Auto) 1.7 % (0.9-2.9) 09/17/20 05:21 Baso % (Auto) 0.5 % (0.2-1.0) 09/17/20 05:21 Neut # (Auto) 4.9 x10^3/uL (2.2-4.8) H 09/17/20 05:21 Lymph # (Auto) 3.0 X10^3/uL (1.3-2.9) H 09/17/20 05:21 [place] # (Auto) 0.8 x10^3/uL (0.3-0.8) 09/17/20 05:21 Eos # (Auto) 0.2 x10^3/uL (0.0-0.2) 09/17/20 05:21 Baso # (Auto) 0.0 X10^3/uL (0.0-0.1) 09/17/20 05:21 Absolute Nucleated RBC 0.0 /100WBC 09/17/20 05:21 Sodium 138 mmol/L (136-145) 09/17/20 05:21 Corrected Sodium 140 mmol/L (136-145) 09/17/20 05:21 Potassium 4.0 mmol/L (3.5-5.1) 09/17/20 05:21 Chloride 104 mmol/L (98-107) 09/17/20 05:21 Carbon Dioxide 27.6 mmol/L (21-32) 09/17/20 05:21 BUN 20 mg/dL (7-18) H 09/17/20 05:21 Creatinine 0.81 mg/dL (0.55-1.02) 09/17/20 05:21 Est GFR (MDRD) Af Amer > 60 (>60) 09/17/20 05:21 Est GFR (MDRD) Non-Af > 60 (>60) 09/17/20 05:21 Glucose 191 mg/dL (65-99) H 09/17/20 05:21 POC Glucose (mg/dL) 173 mg/dL (65-99) H 09/17/20 05:26 Calcium 8.8 mg/dL (8.5-10.1) 09/17/20 05:21 Corrected Calcium 10.2 mg/dL (8.5-10.1) H 09/17/20 05:21 Total Bilirubin 0.10 mg/dL (0.2-1.0) L 09/17/20 05:21 AST 11 Units/L (15-37) L 09/17/20 05:21 ALT 12 Units/L (12-78) 09/17/20 05:21 Alkaline Phosphatase 75 Units/L (46-116) 09/17/20 05:21 Total Protein 7.0 g/dL (6.4-8.2) 09/17/20 05:21 Albumin 2.2 g/dL (3.4-5.0) L 09/17/20 05:21 Globulin 4.8 g/dL (2.5-4.5) H 09/17/20 05:21 Albumin/Globulin Ratio 0.5 Ratio (1.1-2.1) L 09/17/20 05:21 Vancomycin Trough 12.4 ug/mL (15-20) L 09/16/20 19:45 SARS CoV-2 RNA Rapid VANESSA Negative (NEGATIVE) 09/14/20 17:58 - Assessment and Plan 1: LT hip abscess . s/p drainage and packing . needs visiting nurse and we will follow as out Pt .. - Problem Patient Problems: Patient Problems Hypertension (Chronic) I10 Diabetes mellitus (Chronic) E11.9 Anemia (Chronic) D64.9 Hyperlipidemia (Chronic) E78.5 Abscess of left hip (Acute) L02.416
[2020-09-17] MEDS: LEVAQUIN PREMIX IV 500 MG 500 MG/100 ML BAG IV SCH (09:23)
--- NOTE | 2020-09-17 09:24 | PCM.PROG ---
Progress Note - Progress Note for Day of Date of Exam: 09/17/20 - Subjective Subjective: IS BEING TREATED FOR A LEFT HIP ABSCESS. SHE IS DAY 2 STATUS POST I&D OF ABSCESS. PATIENT IS NON-AMBULATORY AND REQUIRES ASSISTANCE FOR ADLs. TODAY, SHE IS ALERT AND ORIENTED, LYING IN BED ON MORNING ROUNDS. SHE REPORTS TENDERNESS TO THE LEFT HIP. ON EXAMINATION, HEART IS REGULAR IN RATE AND RHYTHM. BILATERAL LUNGS ARE CLEAR TO AUSCULTATION. ABDOMEN IS FLAT, SOFT, AND NON-TENDER WITH NORMAL BOWEL SOUNDS NOTED IN ALL QUADRANTS. SURGICAL DRESSING NOTED TO THE LEFT HIP WITH REDNESS SURROUNDING SITE, ERYTHEMA DECREASED SINCE YESTERDAY. REPACKED WOUND AND REPORTS THAT IT CONTINUES WITH MODERATE DRAINAGE. HER VITALS THIS MORNING ARE: 98.3-87-18-96%-140/60. SHE HAS BEEN AFEBRILE SINCE ADMISSION. LABS WERE OBTAINED THIS MORNING. ABNORMAL LAB VALUES INCLUDE THE FOLLOWING: RBC 3.07, HGB 9.3, HCT 27.3, BUN 20, GLUCOSE 191, TOTAL BILI 0.10, AST 11, ALBUMIN 2.2. BLOOD AND WOUND CULTURES ARE PENDING. SHE IS CURRENTLY RECEIVING NORMAL SALINE AT 50 ML/HR, LEVAQUIN 500MG IV DAILY, VANCOMYCIN 750MG IV Q12H, HUMULIN R SLIDING SCALE, OTBS ACHS, JANUVIA 100MG PO BID, GLIPIZIDE 10MG PO BID, AND NORCO 5/325MG PO Q6H PRN PAIN. WE WILL CONTINUE WITH CURRENT PLAN OF CARE TODAY. OTHERWISE, WE PLAN TO FOLLOW UP WITH AM LABS AND CONTINUE TO MONITOR. TIME SPENT ON CLINICAL ASSESSMENT, REVIEWING LABS AND IMAGING, DECISION MAKING, AND DOCUMENTATION GREATER THAN 45 MINUTES. - Past Medical Family Social History Past Med/Fam/Surg Hx: No changes since H&P Allergies: Allergies Iodine and Iodide Containing Produc Allergy (Verified 06/15/20 10:05) - Review of Systems ROS: No change since H&P - Vital Signs and I&O's Vital Signs: Temperature 98.3 F Pulse Rate [Left Brachial] 87 Respiratory Rate 18 Blood Pressure [Right Arm] 140/60 Blood Pressure [Left Arm] 129/61 Blood Pressure [Right Arm] 142/64 Blood Pressure 105/66 O2 Sat by Pulse Oximetry 96 Intake and Output: Intake & Output 09/14/20 09/15/20 09/16/2021 11:59 11:59 11:59 11:59 Intake Total 582 / 582 3263 / 3263 3890 / 3890 Output Total 2200 / 2200 100 / 100 1500 / 1500 Balance -1618 / -1618 3163 / 3163 2390 / 2390 - Physical Exam Oriented: Normal Eyes: Normal Ear: Normal Nose: Normal Throat: Normal Respiratory: Normal Cardiovascular: Normal : Normal Auscultation: Bowel Sounds: Normal Palpation: Normal Tenderness: Normal Skin: Red, Tender, Hot, Wound (less cellulitis with open wound ) Musculoskeletal: Left, Hip, Tender, Instability Psychiatric: Normal Mood Description: Calm Affect: Normal Speech Pattern: Clear, Appropriate - Laboratory and Diagnostics Result Diagrams: 09/17/20 05:21 09/17/20 05:21 Labs: 09/14/20 19:55 Hip - Left Wound Gram Stain - Final 09/14/20 19:55 Hip - Left Wound Culture - Preliminary 09/15/20 12:17 Hip - Left Wound Gram Stain - Final 09/15/20 12:17 Hip - Left Wound Culture - Preliminary 09/14/20 19:15 Blood Blood Culture - Final 09/14/20 19:05 Blood Blood Culture - Preliminary Laboratory WBC 8.9 X10^3/uL (3.6-10.0) 09/17/20 05:21 RBC 3.07 X10^6/uL (3.5-5.4) L 09/17/20 05:21 Hgb 9.3 g/dL (12.0-16.0) L 09/17/20 05:21 Hct 27.3 % (36.0-47.0) L 09/17/20 05:21 MCV 88.8 fL (80.0-100.0) 09/17/20 05:21 MCH 30.2 pg (27.0-34.0) 09/17/20 05:21 MCHC 34.0 g/dL (33.0-35.0) 09/17/20 05:21 RDW 14.6 % (11.6-16.5) 09/17/20 05:21 Plt Count 416 X10^3/uL (150.0-450.0) 09/17/20 05:21 MPV 6.7 fL (7.4-11.0) L 09/17/20 05:21 Neut % (Auto) 55.2 % (42.0-75.0) 09/17/20 05:21 Lymph % (Auto) 33.4 % (21.0-51.0) 09/17/20 05:21 [place] % (Auto) 9.2 % (0.0-13.0) 09/17/20 05:21 Eos % (Auto) 1.7 % (0.9-2.9) 09/17/20 05:21 Baso % (Auto) 0.5 % (0.2-1.0) 09/17/20 05:21 Neut # (Auto) 4.9 x10^3/uL (2.2-4.8) H 09/17/20 05:21 Lymph # (Auto) 3.0 X10^3/uL (1.3-2.9) H 09/17/20 05:21 [place] # (Auto) 0.8 x10^3/uL (0.3-0.8) 09/17/20 05:21 Eos # (Auto) 0.2 x10^3/uL (0.0-0.2) 09/17/20 05:21 Baso # (Auto) 0.0 X10^3/uL (0.0-0.1) 09/17/20 05:21 Absolute Nucleated RBC 0.0 /100WBC 09/17/20 05:21 Sodium 138 mmol/L (136-145) 09/17/20 05:21 Corrected Sodium 140 mmol/L (136-145) 09/17/20 05:21 Potassium 4.0 mmol/L (3.5-5.1) 09/17/20 05:21 Chloride 104 mmol/L (98-107) 09/17/20 05:21 Carbon Dioxide 27.6 mmol/L (21-32) 09/17/20 05:21 BUN 20 mg/dL (7-18) H 09/17/20 05:21 Creatinine 0.81 mg/dL (0.55-1.02) 09/17/20 05:21 Est GFR (MDRD) Af Amer > 60 (>60) 09/17/20 05:21 Est GFR (MDRD) Non-Af > 60 (>60) 09/17/20 05:21 Glucose 191 mg/dL (65-99) H 09/17/20 05:21 POC Glucose (mg/dL) 173 mg/dL (65-99) H 09/17/20 05:26 Calcium 8.8 mg/dL (8.5-10.1) 09/17/20 05:21 Corrected Calcium 10.2 mg/dL (8.5-10.1) H 09/17/20 05:21 Total Bilirubin 0.10 mg/dL (0.2-1.0) L 09/17/20 05:21 AST 11 Units/L (15-37) L 09/17/20 05:21 ALT 12 Units/L (12-78) 09/17/20 05:21 Alkaline Phosphatase 75 Units/L (46-116) 09/17/20 05:21 Total Protein 7.0 g/dL (6.4-8.2) 09/17/20 05:21 Albumin 2.2 g/dL (3.4-5.0) L 09/17/20 05:21 Globulin 4.8 g/dL (2.5-4.5) H 09/17/20 05:21 Albumin/Globulin Ratio 0.5 Ratio (1.1-2.1) L 09/17/20 05:21 Vancomycin Trough 12.4 ug/mL (15-20) L 09/16/20 19:45 SARS CoV-2 RNA Rapid VANESSA Negative (NEGATIVE) 09/14/20 17:58 - Plan (1) Abscess of left hip Status: Acute Plan: NORMAL SALINE AT 50 ML/HR, LEVAQUIN 500MG IV DAILY, VANCOMYCIN 750MG IV Q12H, HUMULIN R SLIDING SCALE, OTBS ACHS, JANUVIA 100MG PO BID, GLIPIZIDE 10MG PO BID, AND NORCO 5/325MG PO Q6H PRN PAIN. I&D TODAY. (2) Hypertension Status: Chronic Qualifiers: Hypertension type: essential hypertension (3) Diabetes mellitus Status: Chronic Qualifiers: Diabetes mellitus type: type 2 Diabetes mellitus chcf insulin use: unspecified chcf insulin use status Diabetes mellitus complication status: with hyperglycemia Qualified Code(s): E11.65 - Type 2 diabetes mellitus with hyperglycemia (4) Anemia Status: Chronic Qualifiers: Anemia type: unspecified type Qualified Code(s): D64.9 - Anemia, unspecified (5) Hyperlipidemia Status: Chronic Qualifiers: Hyperlipidemia type: mixed hyperlipidemia Qualified Code(s): E78.2 - Mixed hyperlipidemia
[2020-09-17] MEDS: GLUCOTROL PO SCH ×2 (09:25→21:22)
[2020-09-17] MEDS: JANUVIA PO SCH (09:26)
[2020-09-17] MEDS: NS 1000 ML 1,000 ML IV SCH ×2 (09:27→17:18)
[2020-09-17] MEDS: VANCOMYCIN IV *PREMIX 750 mg/150 ML BAG 750 MG/150 ML PIGGYBACK IV SCH ×2 (10:50→21:19)
[2020-09-17] MEDS: SNACK - Diabetic Appropriate PO SCH (20:22)
[2020-09-18 06:23] LABS: ALANINE AMINOTRANSFERASE 13 Units/L (12-78); ALBUMIN 2.2 g/dL (3.4-5.0); ALKALINE PHOSPHATASE 77 Units/L (46-116); ASPARTATE AMINO TRANSFERASE 13 Units/L (15-37); BLOOD UREA NITROGEN 18 mg/dL (7-18); CARBON DIOXIDE 27.6 mmol/L (21-32); CHLORIDE 105 mmol/L (98-107); COR CA(FOR HYPOALB) 10.4 mg/dL (8.5-10.1); COR NA(FOR HYPERGLY) 140 mmol/L (136-145); CREATININE 0.74 mg/dL (0.55-1.02); SODIUM 139 mmol/L (136-145); TOTAL PROTEIN 7.1 g/dL (6.4-8.2); eGFR NON BLACK RACES > 60 (>60)
[2020-09-18 06:32] LABS: BASOPHILS # (AUTO) 0.1 X10^3/uL (0.0-0.1); BASOPHILS % (AUTO) 0.8 % (0.2-1.0); EOSINOPHILS # (AUTO) 0.1 x10^3/uL (0.0-0.2); EOSINOPHILS % (AUTO) 1.8 % (0.9-2.9); HEMATOCRIT 27.5 % (36.0-47.0); HEMOGLOBIN 9.2 g/dL (12.0-16.0); LYMPHOCYTES # (AUTO) 2.9 X10^3/uL (1.3-2.9); LYMPHOCYTES % (AUTO) 36.8 % (21.0-51.0); MEAN CORPUSCULAR HEMOGLOBIN 29.8 pg (27.0-34.0); MEAN CORPUSCULAR HGB CONC 33.7 g/dL (33.0-35.0); MEAN CORPUSCULAR VOLUME 88.5 fL (80.0-100.0); MEAN PLATELET VOLUME 6.8 fL (7.4-11.0); MONOCYTES # (AUTO) 0.7 x10^3/uL (0.3-0.8); MONOCYTES % (AUTO) 8.7 % (0.0-13.0); NEUTROPHILS # (AUTO) 4.1 x10^3/uL (2.2-4.8); NEUTROPHILS % (AUTO) 51.9 % (42.0-75.0); PLATELET COUNT 405 X10^3/uL (150.0-450.0); RED CELL DISTRIBUTION WIDTH 14.1 % (11.6-16.5)
[2020-09-18] MEDS: NS 1000 ML 1,000 ML IV SCH ×2 (09:20→14:56)
[2020-09-18] MEDS: LEVAQUIN PREMIX IV 500 MG 500 MG/100 ML BAG IV SCH (09:21)
[2020-09-18] MEDS: VANCOMYCIN IV *PREMIX 750 mg/150 ML BAG 750 MG/150 ML PIGGYBACK IV SCH (09:21)
[2020-09-18] MEDS: GLUCOTROL PO SCH (09:22)
[2020-09-18] MEDS: JANUVIA PO SCH (09:22)
[2020-09-18 13:10] VITALS: BP 155/66
[2020-09-19] MEDS ORDERED: PHARMACY COMMENT IV ONE (08:30)
== END 2020-09-18 15:00 | disposition home health service (06) | DRG 603 ==
LOC: MED/SURG
PROVIDERS: ADMIT Internal Medicine; ATTEND Internal Medicine